=== PATIENT | female | born 1970 | race Caucasian/White ===

== ENCOUNTER 2018-11-05 15:33 | Outpatient (CLI) | payer OTHER, SELFPAY ==
[2018-11-05 16:47] LABS: Abs Immature Grans 0.02 k/cumm (0.0-0.09); Absolute Basophil Count 0.02 k/cumm (0.0-0.2); Absolute Eosinophil Count 0.14 k/cumm (0.0-0.7); Absolute Lymphocyte Count 2.59 k/cumm (1.2-3.4); Absolute Monocyte Count 0.77 k/cumm (0.11-0.7); Absolute Neutrophil Count 6.58 k/cumm (1.2-6.7); Basophils % 0.2; Eosinophils % 1.4; HCT 37.5 % (36.0-46.0); HGB 12.4 g/dL (12.0-15.5); Immature Grans % 0.2; Lymphocytes % 25.6; Mean Corp. HGB Concentration 33.1 g/dL (32.0-36.0); Mean Corpuscular Hemoglobin 30.8 pg (27.0-33.0); Mean Corpuscular Volume 93.1 fL (80-95); Mean Platelet Volume 9.2 fL (8.0-11.0); Monocytes % 7.6; Platelet Count 330 x1000/uL (130-400); RBC 4.03 m/cumm (4.00-5.20); RBC Distribution Width 13.1 % (11.7-14.6); White Blood Cell Count 10.12 k/cumm (4.4-10.8)
[2018-11-05 16:54] LABS: Anion Gap 9.1 mmol/L (3-11); BUN 14 mg/dL (7-18); CO2 26.9 mmol/L (21.0-32.0); CREATININE 0.84 mg/dL (0.55-1.02); Calcium 8.8 mg/dL (8.5-10.1); Chloride 103 mmol/L (98-107); Glucose 83 mg/dL (70-100); Sodium 139 mmol/L (136-145)
== END 2018-11-05 15:53 ==
PROVIDERS: PCP Family Medicine; Visit Provider Family Medicine
DX: K04.7 Periapical abscess without sinus (principal); J20.9 Acute bronchitis, unspecified; R53.83 Other fatigue; E87.5 Hyperkalemia
CPT/HCPCS: 36415; 80048; 85025

== ENCOUNTER 2018-12-18 07:09 | Outpatient (CLI) | payer OTHER, SELFPAY ==
[2018-12-18 08:06] LABS: Hemoglobin A1C 5.6 % (4.5-6.2)
[2018-12-18 08:38] LABS: FREE T4 0.83 ng/dL (0.76-1.46); Magnesium 1.9 mg/dL (1.8-2.4); TSH 2.42 uIU/mL (0.358-3.74)
[2018-12-18 09:12] LABS: Cholesterol 181 mg/dL (50-200); HDL Cholesterol 44 mg/dL (40-60); LDL CHOLESTEROL 120 mg/dL (<100); Triglyceride 80 mg/dL (30-150)
== END 2018-12-18 07:29 ==
PROVIDERS: PCP Family Medicine; Visit Provider Nurse Practitioner Family
DX: E78.5 Hyperlipidemia, unspecified (principal); R00.2 Palpitations
CPT/HCPCS: 36415; 80061; 83721; 83036; 83735; 84439; 84443

== ENCOUNTER 2018-12-23 00:30 | Outpatient (CLI) | payer OTHER, SELFPAY ==
--- NOTE | 2018-12-23 15:09 | DI.MAMMO_ITS ---
SYMPTOMS/DIAGNOSIS: SCREENING, Z12.31 MAMMOGRAM: Mammograms were interpreted according to the usual protocol including computer analysis with CAD system, tomosynthesis and C view imaging. Comparison with prior examinations. Breast density C. No suspicious masses or microcalcifications are seen. There is no definite evidence of malignancy. IMPRESSION: Negative mammogram. Routine screening is recommended. Category I. MQSA ASSESSMENT OF FINDINGS: Negative. Category 1. Patient will receive a letter notifying them of these results. Bi-RADS category C. The breasts are heterogeneously dense, which may obscure small masses.
== END 2018-12-23 00:50 ==
PROVIDERS: PCP Family Medicine; Visit Provider Nurse Practitioner Family
DX: Z12.31 Encounter for screening mammogram for malignant neoplasm of breast (principal)
CPT/HCPCS: 77063; 77067

== ENCOUNTER 2018-12-23 02:23 | Outpatient (CLI) | payer OTHER, SELFPAY ==
--- NOTE | 2018-12-31 10:09 | HOLTER_ITS ---
48-HOUR STUDY Baseline rhythm sinus. Occasional single PAC. No atrial fibrillation or SVT. Rare single PVC. No VT. No bradycardia. SYMPTOMS: Flutter noted six times during sinus rhythm 91-105 bpm. Noted once during ectopic atrial rhythm 71 b pm. Thumping noted twice during sinus rhythm 83, 94 bpm, +/- single PAC. Average heart rate 79 bpm, range 59-140 bpm.
== END 2018-12-23 02:43 ==
PROVIDERS: PCP Family Medicine; Visit Provider Nurse Practitioner Family
DX: R00.2 Palpitations (principal); I49.1 Atrial premature depolarization; I49.3 Ventricular premature depolarization
CPT/HCPCS: 93225

== ENCOUNTER 2018-12-30 12:58 | Outpatient (CLI) | payer OTHER, SELFPAY | END 2018-12-30 13:18 | PROVIDERS: PCP Family Medicine; Visit Provider Nurse Practitioner Family | DX: R00.2 Palpitations (principal); I49.1 Atrial premature depolarization; I49.3 Ventricular premature depolarization | CPT/HCPCS: 93226 ==

== ENCOUNTER 2019-12-19 03:31 | Outpatient (CLI) | payer OTHER, SELFPAY ==
--- NOTE | 2019-12-19 07:30 | DI.RAD_ITS ---
EXAM: XR FOOT LT COMPLETE CLINICAL HISTORY: chronic left foot pain, hx of foot fracture,g89.29. TECHNIQUE: 2D digital imaging was performed. COMPARISON: No exams were available for comparison FINDINGS: BONES: No acute fracture is present. No bony destructive lesion is seen. No old fracture deformity is identified. There is a small accessory navicular. A small heel spur is seen. JOINTS: No dislocation present. SOFT TISSUE: Normal. IMPRESSION: Unremarkable radiographs of the left foot. DATA REPOSITORY: RADIATION DOSE DELIVERED:
== END 2019-12-19 03:51 ==
PROVIDERS: PCP Family Medicine; Visit Provider Nurse Practitioner Family
DX: M79.672 Pain in left foot (principal); G89.29 Other chronic pain; M77.32 Calcaneal spur, left foot
CPT/HCPCS: 73630

== ENCOUNTER 2019-12-23 01:07 | Outpatient (CLI) | payer OTHER, SELFPAY | END 2019-12-23 01:27 | PROVIDERS: PCP Family Medicine; Visit Provider Family Medicine | DX: R00.2 Palpitations (principal) | CPT/HCPCS: 0296T ==

== ENCOUNTER 2019-12-28 16:20 | Emergency (ER) | payer OTHER, SELFPAY ==
[2019-12-28] VITALS (12 sets, daily range): BP systolic 109–133; BP diastolic 58–86; PULSE 76–98; RESP 16–20; TEMP 36.6–36.7; O2SAT 93–98
--- NOTE | 2019-12-28 16:35 | ED.GENADUL_ITS ---
Discharge Plan Disposition Patient Disposition: HOME Condition: Stable Discharge Details Chief Complaint: Allergic Clinical Impression: Bee sting Primary Care Provider: Nevin Hernandez ED Provider: Joshua Ghosh Home Meds and New Rx's Prescriptions: New prednisone 20 mg tablet 60 mg PO DAILY 5 Days Qty: 15 RF: 0 No Action acyclovir 400 mg tablet 400 mg PO BID PRNRF: 0 albuterol sulfate [Ventolin HFA] 90 mcg/actuation HFA aerosol inhaler 1 - 2 puff IH Q4H PRN (Reason: shortness of breath or wheezing) Qty: 8.5 RF: 0 Mirena 1 EACH intrauterine device 1 ea Intrauterine ONCE Qty: 1 RF: 0 Discharge Instructions Instructions: Insect Bite or Sting (ED) Additional Instructions: A take-home EpiPen has been given, use as directed as we discussed. [id number] Zantac and Benadryl as directed. Cool compresses as tolerated. I am providing you a prescription of prednisone, burst, over the next 5 days, take as directed. Please watch for new or worsening symptoms and return to the ER for any concerns. I would like you to reach out to your primary care provider tomorrow to make them aware of your ER visit and for prompt outpatient reevaluation Medical Decision Making 49-year-old female who presents approximately 45 minutes after being stung by a bee. She already took 50 mg p.o. Benadryl and 40 mg p.o. prednisone. She has moderate swelling at the site of the sting however has no signs of systemic reaction, angioedema, anaphylaxis. The location of the sting on the upper lip is obviously concerning however lower lip, mouth, tongue otherwise unremarkable. I do believe it is reasonable given the location to establish IV access, give IV fluids, Zantac, 0.3 subcu epi, and additional 20 p.o. prednisone. Patient is agreeable to this plan. She does understand that she will need to be observed in the ER for a minimum of 4 hours after the epi is given for the potential of rebound. Patient was evaluated and observed multiple times throughout her visit. Each subsequent eval of the swelling did decrease. Now there is no real swelling in the zygomatic region and only mild swelling of the upper lip. There is no obvious stinger present, the erythema has resolved. She is speaking in full sentences, O2 sats are in the high 90s on room air, there is no wheezing. There is no evidence of hives elsewhere on her body. She is able to drink without difficulty. Upon final disposition, patient had been observed for over 4-1/2 hours. At discharge she had minimal upper lip swelling but her face was nearly back to baseline. We discussed that she could be observed in the ER for a longer period of time. We discussed additional treatment of epinephrine however with her history of palpitations and currently wearing a Holter monitor, she would like to avoid additional medications if at all possible. She feels as though she can safely be discharged does not believe further observation is indicated. I do not believe that this was a true anaphylactic reaction, nor true angioedema. I believe that she had a bee sting reaction that was localized to the location of the sting and this appeared more impressive as that was located on her lip. I will provide her with an EpiPen to go home with and I will provide a prescription of a burst dose prednisone over the next 5 days. She will take fjbk-aac-bsnqcpe Benadryl and Zantac. She was encouraged to return to the ER for new or worsening symptoms, otherwise follow-up with her primary care provider tomorrow. Medical Records Medical records reviewed: Yes I reviewed the patient's medical records. HPI General Mode of arrival: ambulatory . Date/Time Provider Initiated Documentation: 12/28/19 16:22 . Limitations to Documentation: no limitations . Information obtained by: patient . HPI Narrative: This is a 49-year-old female who is otherwise healthy presenting for evaluation of a bee sting that occurred roughly 45 minutes ago on her upper lip. She reports that she has had moderate to severe localized allergic reactions to bee stings in the past but never any systemic reactions and never required any epinephrine or intubation. She immediately took 40 mg of prednisone and 50 mg of Benadryl. She reports localized lip swelling which she reports feels like it is extending into her face but denies difficulty swallowing, sensation like her throat is closing, tongue swelling or lower lip swelling. She denies rash anywhere on her body, wheezing, difficulty breathing. She reports that if the bee sting was not l ocated on her face she would have likely not come to the ER but given the location and after talking to her friend who is a nurse decided to come to the ER for further evaluation. Related Data Home Medications Medication Instructions Recorded Confirmed levonorgestrel [Mirena] 1 ea INTRAUTERINE ONCE #1 implant 11/10/13 12/17/19 albuterol sulfate 90 mcg/actuation 1 - 2 puff IH Q4H PRN #8.5 gm 10/28/18 12/17/19 aerosol inhaler acyclovir 400 mg tablet 400 mg PO BID PRN tab-cap 12/11/18 12/17/19 prednisone 60 mg PO DAILY 5 Days #15 tab 12/28/19 Previous Rx's Medication Instructions Recorded albuterol sulfate 90 mcg/actuation 1 - 2 puff IH Q4H PRN #8.5 gm 10/28/18 aerosol inhaler prednisone 60 mg PO DAILY 5 Days #15 tab 12/28/19 Allergies Allergy/AdvReac Type Severity Reaction Status Date / Time venom-honey bee Allergy Intermediate Local Verified 11/05/18 14:43 Swelling General Stated Complaint: Allergic OLGA LIDIA: 3 Review of Systems Constitutional Constitutional: Denies headache(s) Eyes Eyes: Denies itchy eyes ENT Ears, Nose, Mouth, and Throat: Denies headache(s), Reports lip swelling, Denies throat swelling and Denies tongue swelling Cardiovascular Cardiovascular: Denies chest pain and Denies dyspnea Respiratory Respiratory: Denies cough, Denies dyspnea and Denies wheezing Gastrointestinal Gastrointestinal: Denies abdominal pain, Denies nausea and Denies vomiting Musculoskeletal Musculoskeletal: Denies numbness and Denies tingling Integumentary/Breasts Skin/Breast: Reports rash Neurologic Neurologic: Denies headache(s), Denies numbness and Denies tingling Allergic/Immunologic Allergic/Immunologic: Denies urticaria, Denies itchy eyes, Reports lip swelling, Denies throat swelling, Denies tongue swelling and Denies wheezing [facility] Medical History Anxiety and depression (Resolved) stress with step daughter. has declined Rx with Zoloft in the past. Asthma (Resolved) BPPV (benign paroxysmal positional vertigo) (Inactive) Genital herpes (Inactive) GERD (gastroesophageal reflux disease) (Resolved) Hyperlipidemia (Chronic) IUD surveillance (Inactive) Mirena IUD inserted 05/22/17 Family History Mother TB (tuberculosis) A CHILD Essential hypertension Non-Hodgkin lymphoma Stroke Prediabetes Father Essential hypertension Sister No problems noted. Sister No problems noted. Sister No problems noted. Brother No problems noted. Daughter No problems noted. Daughter No problems noted. Daughter No problems noted. Son No problems noted. Maternal Grandfather Glaucoma Parkinson disease Maternal Grandmother Skin cancer Non-Hodgkin lymphoma Heart disease Paternal Grandfather , of NE in his 50s/60s Heart disease Myocardial infarction Paternal Grandmother Colon cancer In her early 80s Macular degeneration Heart disease Social History Smoking/Tobacco Use Status: Former Tobacco Use Quit Date: 08/27/98 Alcohol Intake: current Alcohol Intake frequency: holidays/special occasions only Drug use: Never Substance use type: does not use Do you feel safe at home: Yes Do you feel safe in your relationship?: Yes Female Reproductive History Menstrual control method: progestin IUCD (Mirena IUD 05/22/17) History History 4 Para 4 Hx # Term Pregnancies Multiple births Hx # Pregnancies Ectopic pregnancies AB induced Hx Number of Living Children 4 AB spontaneous Exam Const General: cooperative, healthy appearing, comfortable and no acute distress Orientation: alert, awake and oriented x3 HENMT Head: normal to inspection, normocephalic and atraumatic General nose exam: external nose normal Face and sinus: no tenderness and other (Mild swelling bilateral face, zygomatic region) Mouth: tongue normal, oropharynx normal, moist mucous membranes, no drooling, l ip abnormal (Upper lip, moderate swelling) and no muffled voice Throat: posterior oropharynx normal Eyes Conjunctivae: conjunctivae normal Neck Neck: normal visual inspection, full ROM, no lymphadenopathy, trachea midline, supple and nontender Resp Effort & Inspection: normal respiratory effort and able to speak in complete sentences Auscultation: clear to auscultation bilaterally Cardio Rate: regular rate Rhythm: regular rhythm Skin General skin exam: erythema (Mild, above upper lip, no obvious stinger intact) Neuro General: patient alert, patient awake, patient oriented x3, moves all extremities and no focal motor deficits Cranial Nerves: CN's II-XI intact bilaterally Cognition: normal cognition Speech: speech normal Sensory Exam: no sensory deficits noted Extrem General: normal to inspection and full ROM Psych Appearance: grossly normal Mental Status: mental status grossly normal Course Vital Signs Vital signs: Vital Signs Temperature 36.6 C 12/28/19 16:25 Pulse 98 H 12/28/19 16:25 Respiratory Rate 16 12/28/19 16:25 Blood Pressure 133/86 12/28/19 16:25 Pulse Oximetry 98 12/28/19 16:25 Temperature 36.6 C 12/28/19 16:25 Temperature Source Tympanic 12/28/19 16:25 Pulse 98 H 12/28/19 16:25 Respiratory Rate 16 12/28/19 16:25 Respiratory Effort Non-Labored 12/28/19 16:27 Blood Pressure 133/86 12/28/19 16:25 Blood Pressure Position Sitting 12/28/19 16:25 Pulse Oximetry 98 12/28/19 16:25 Oxygen Delivery Method Room Air 12/28/19 16:25 Oxygen Flow Rate 0 12/28/19 16:25 Pain Level 6 12/28/19 16:25
[2019-12-28] MEDS: Normal Saline 1,000 ML 1000 ML IV (16:47)
[2019-12-28] MEDS: EPINEPHrine 0.3 MG KIT IM ×2 (16:47→20:38)
[2019-12-28] MEDS: predniSONE 20 MG TAB PO (16:47)
--- NOTE | 2020-01-12 08:45 | ZIOP_ITS ---
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 ?Patient was in normal sinus rhythm for the majority of the recording. ?There were 7 runs of supraventricular tachycardia with the longest lasting 20 seconds. ?There were occasional isolated premature atrial contractions. ?There were rare ventricular ectopic beats and no evidence of ventricular tachycardia. ?There were no pauses greater than 3 seconds no episodes of atrial fibrillation and no episodes of high degree heart block. ?Patient triggered events were associated with sinus rhythm sinus tachycardia, premature atrial contractions and supraventricular tachycardia.
== END 2019-12-28 19:20 | disposition home or self-care (01) ==
PROVIDERS: Emergency Provider Physician Assistant; PCP Family Medicine
DX: T63.441A Toxic effect of venom of bees, accidental (unintentional), initial encounter (principal); R60.0 Localized edema; Z91.030 Bee allergy status
CPT/HCPCS: 36415; 96361; 96365; 96372; 99284; J0171; J7512

== ENCOUNTER 2020-01-22 03:34 | Outpatient (CLI) | payer OTHER, SELFPAY ==
[2020-01-22 12:44] LABS: HCT 36.1 % (36.0-46.0); HGB 11.8 g/dL (12.0-15.5); Mean Corp. HGB Concentration 32.7 g/dL (32.0-36.0); Mean Corpuscular Hemoglobin 30.6 pg (27.0-33.0); Mean Corpuscular Volume 93.8 fL (80-95); Mean Platelet Volume 9.1 fL (8.0-11.0); Platelet Count 351 x1000/uL (130-400); RBC 3.85 m/cumm (4.00-5.20); RBC Distribution Width 13.2 % (11.7-14.6); White Blood Cell Count 8.28 k/cumm (4.4-10.8)
[2020-01-22 13:57] LABS: ALT 30 U/L (14-59); AST 16 U/L (15-37); Albumin 3.7 g/dL (3.4-5.0); Alkaline Phosphatase 65 U/L (46-116); Anion Gap 4.5 mmol/L (3-11); BUN 13 mg/dL (7-18); Bilirubin, Total 0.4 mg/dL (0.2-1.0); CO2 28.5 mmol/L (21.0-32.0); CREATININE 0.85 mg/dL (0.55-1.02); Calcium 8.5 mg/dL (8.5-10.1); Chloride 106 mmol/L (98-107); Ferritin 117 ng/mL (8-252); Glucose 81 mg/dL (74-106); Potassium 3.9 mmol/L (3.5-5.1); Sodium 139 mmol/L (136-145); TSH 1.73 uIU/mL (0.36-3.74); Total Protein 6.7 g/dL (6.4-8.2)
[2020-01-22 14:15] LABS: FREE T4 0.78 ng/dL (0.76-1.46)
== END 2020-01-22 03:54 ==
PROVIDERS: PCP Nurse Practitioner Family; Visit Provider Nurse Practitioner Family
DX: R00.2 Palpitations (principal); Z86.2 Personal history of diseases of the blood and blood-forming organs and certain disorders involving the immune mechanism
CPT/HCPCS: 36415; 80053; 85027; 82728; 83735; 84439; 84443

== ENCOUNTER 2020-06-01 07:30 | Outpatient (CLI) | payer OTHER, SELFPAY ==
[2020-06-03 12:15] LABS: Patient Race White; SARS-CoV-2 RNA Undetected (Undetected); SARS-CoV-2 Specimen Source Nasopharynx
== END 2020-06-01 07:50 ==
PROVIDERS: PCP Nurse Practitioner Family; Visit Provider Nurse Practitioner Family
DX: R05 Cough (principal)
CPT/HCPCS: U0003

== ENCOUNTER 2020-07-23 02:33 | Outpatient (CLI) | payer OTHER, SELFPAY ==
--- NOTE | 2020-07-23 06:45 | DI.MAMMO_ITS ---
EXAM: MAMMO SCREENING CLINICAL HISTORY: screening, Z12.31 TECHNIQUE: Mammograms were interpreted according to the usual protocol including computer analysis w [facility] CAD system, tomosynthesis and C-view imaging. COMPARISON: FINDINGS: The breasts are heterogeneously dense. No dominant mass or clumped microcalcification is identified in either breast. The current examination is compared with prior examinations including November 2018, there is question of increase in prominence of a focal area of vaguely nodular asymmetric density pro jected in the upper outer quadrant of the left breast on CC and MLO views. Additional mammographic v iews of this area are requested to include CC and MLO spot compression views of the left breast, as w ell as a breast ultrasound on the left. No other significant change seen. IMPRESSION: Additional mammographic views of the left breast and left breast ultrasound are requested as describe d above. BI-RADS Category 0 - Assessment Incomplete: Need additional imaging evaluation Breast Density - Category C - Heterogeneously dense
== END 2020-07-23 02:53 ==
PROVIDERS: PCP Family Medicine; Visit Provider Nurse Practitioner Family
DX: Z12.31 Encounter for screening mammogram for malignant neoplasm of breast (principal); R92.8 Other abnormal and inconclusive findings on diagnostic imaging of breast
CPT/HCPCS: 77063; 77067

== ENCOUNTER 2020-07-27 00:57 | Outpatient (CLI) | payer OTHER, SELFPAY ==
--- NOTE | 2020-07-27 | DI.US_ITS ---
EXAM: MG MAMMO SCREEN CALL BACK UNI CLINICAL HISTORY: F/U MAMMO, ? INCREASE IN NODULAR ASYMMETRIC DENSITY UOQ TECHNIQUE: Mammograms were interpreted according to the usual protocol including computer analysis w [employer] CAD system, tomosynthesis and C-view imaging. COMPARISON: FINDINGS: Additional mammographic views of the left breast and left breast ultrasound are interpreted in conjun ction. These examinations were obtained to evaluate a questionable areas asymmetric density/nodulari ty of upper outer quadrant of left breast seen on recent mammogram. The findings are less prominent on the CC spot compression views of this area, breast ultrasound [facility] shows a 9 millimeter in diameter simple cyst and no solid mass lesion. IMPRESSION: No specific evidence of malignancy at this time. Follow-up unilateral left breast mammogram recommen ded in 6 months. BI-RADS Category 3 - 6 month - Probably Benign Finding: Recommend follow-up mammography in 6 months Breast Density - Category C - Heterogeneously dense
== END 2020-07-27 01:17 ==
PROVIDERS: PCP Family Medicine; Visit Provider Nurse Practitioner Family
DX: Z12.31 Encounter for screening mammogram for malignant neoplasm of breast (principal); R92.8 Other abnormal and inconclusive findings on diagnostic imaging of breast; N60.02 Solitary cyst of left breast
CPT/HCPCS: 76642; 77063; 77067

== ENCOUNTER 2020-11-16 10:23 | Outpatient (CLI) | payer OTHER, SELFPAY ==
[2020-11-17 14:02] LABS: COVID-19 RT-PCR UVMMC Result Negative (Negative)
== END 2020-11-16 10:24 | disposition home or self-care (01) ==
PROVIDERS: PCP Family Medicine; Visit Provider Family Medicine
DX: Z20.828 Contact with and (suspected) exposure to other viral communicable diseases (principal)
CPT/HCPCS: U0003

== ENCOUNTER 2020-12-22 03:32 | Outpatient (CLI) | payer OTHER, SELFPAY ==
[2020-12-22 12:25] LABS: Abs Immature Grans 0.02 10^3/uL (0.0-0.06); Absolute Basophil Count 0.03 10^3/uL (0.0-0.2); Absolute Eosinophil Count 0.11 10^3/uL (0.0-0.7); Absolute Lymphocyte Count 1.97 10^3/uL (1.2-3.4); Absolute Monocyte Count 0.61 10^3/uL (0.1-0.8); Absolute Neutrophil Count 5.36 10^3/uL (1.2-6.7); Basophils % 0.4; Eosinophils % 1.4; HCT 39.3 % (36.0-46.0); HGB 12.7 g/dL (11.2-15.7); Immature Grans % 0.2; Lymphocytes % 24.3; MCH 30.8 pg (27.0-33.0); MCHC 32.3 % (32.0-36.0); MCV 95.4 fL (80-95); MPV 9.4 fL (8.0-11.0); Monocytes % 7.5; Neutrophils % 66.2; Nucleated RBC 0 %; Platelet Count 310 10^3/uL (130-400); RBC 4.12 10^6/uL (3.93-5.22); RDW 13.1 % (11.7-14.6); RDW-SD 45.6 fL
[2020-12-22 12:44] LABS: Anion Gap 7.3 mmol/L (3-11); BUN 15 mg/dL (7-18); CO2 27.7 mmol/L (21.0-32.0); CREATININE 0.9 mg/dL (0.55-1.02); Calcium 8.7 mg/dL (8.5-10.1); Calculated LDL 116 mg/dL (<100); Chloride 106 mmol/L (98-107); Cholesterol 174 mg/dL (<200); Glucose 96 mg/dL (74-106); HDL Cholesterol 37 mg/dL (40-60); Potassium 4.4 mmol/L (3.5-5.1); Sodium 141 mmol/L (136-145); Triglyceride 105 mg/dL (<150)
== END 2020-12-22 03:33 | disposition home or self-care (01) ==
PROVIDERS: PCP Nurse Practitioner Family; Visit Provider Nurse Practitioner Family
DX: E78.5 Hyperlipidemia, unspecified (principal); R71.8 Other abnormality of red blood cells
CPT/HCPCS: 36415; 80048; 80061; 85025

== ENCOUNTER 2021-01-25 02:07 | Outpatient (CLI) | payer OTHER, SELFPAY ==
--- NOTE | 2021-01-25 09:30 | DI.MAMMO_ITS ---
Exam(s) MAMMO DIAGNOSTIC UNI EXAM: MAMMO DIAGNOSTIC UNI CLINICAL HISTORY: ABNORMAL MAMMO, 6 MO F/U,R92.8,Z09 TECHNIQUE: Mammograms were interpreted according to the usual protocol including computer analysis w [employer] CAD system, tomosynthesis and C-view imaging. COMPARISON: FINDINGS: Left breast mammogram was performed to re-evaluate area of asymmetric density noted on prior mammogra phies of June 2020. No change in appearance on today's examination. No new mass or clumped micr ocalcification identified in the left breast. IMPRESSION: No specific evidence of malignancy at this time. I would suggest that routine screening examinations resume with a bilateral mammogram in 6 months. BI-RADS Category 3 - 6 month - Probably Benign Finding: Recommend follow-up mammography in 6 months Breast Density - Category C - Heterogeneously dense
== END 2021-01-25 02:27 ==
PROVIDERS: PCP Nurse Practitioner Family; Visit Provider Nurse Practitioner Family
DX: Z12.31 Encounter for screening mammogram for malignant neoplasm of breast (principal); R92.8 Other abnormal and inconclusive findings on diagnostic imaging of breast; N64.59 Other signs and symptoms in breast
CPT/HCPCS: 77061; 77065; G0279

== ENCOUNTER 2021-06-14 10:19 | Outpatient (REF) | payer OTHER, SELFPAY ==
[2021-06-16 15:31] LABS: COVID-19 RT-PCR UVMMC Result Negative (Negative)
== END 2021-06-14 10:20 | disposition home or self-care (01) ==
LOC: LBN 10:19
PROVIDERS: Family Medicine; PCP Nurse Practitioner Family; Visit Provider Nurse Practitioner Family
DX: Z20.822 Contact with and (suspected) exposure to COVID-19 (principal); R05.9 Cough, unspecified
CPT/HCPCS: U0003

== ENCOUNTER 2021-06-27 12:29 | Outpatient (REF) | payer OTHER, SELFPAY ==
[2021-06-29 15:02] LABS: COVID-19 RT-PCR UVMMC Result Positive (Negative)
== END 2021-06-27 12:30 | disposition home or self-care (01) ==
LOC: LBN 12:29
PROVIDERS: PCP Nurse Practitioner Family; Visit Provider Family Medicine
DX: Z20.822 Contact with and (suspected) exposure to COVID-19 (principal)
CPT/HCPCS: U0003

== ENCOUNTER 2021-09-06 01:21 | Outpatient (CLI) | payer OTHER, SELFPAY ==
--- NOTE | 2021-09-06 07:30 | DI.MAMMO_ITS ---
Exam(s) MAMMO DIAGNOSTIC BI EXAM: MAMMO DIAGNOSTIC BI CLINICAL HISTORY: F/U ABNL MAMMO, SHORT TERM F/U,R92.8,Z09 TECHNIQUE: Mammograms were interpreted according to the usual protocol including computer analysis w [employer] CAD system, tomosynthesis and C-view imaging. COMPARISON: FINDINGS: The breasts are heterogeneously dense. No dominant mass or clumped microcalcification is identified in either breast. The current examination is compared with previous examinations including July 2020 and there has been no gross interval change in appearance in comparison with the prior studies. IMPRESSION: No specific evidence of malignancy at this time. Routine screening examinations are suggested at yea rly intervals in this age group according to the ACS ACR guidelines. BI-RADS Category 1 - Negative Breast Density - Category C - Heterogeneously dense
== END 2021-09-06 01:41 ==
PROVIDERS: PCP Nurse Practitioner Family; Visit Provider Nurse Practitioner Family
DX: R92.8 Other abnormal and inconclusive findings on diagnostic imaging of breast (principal)
CPT/HCPCS: 77062; 77066; G0279

== ENCOUNTER 2021-09-15 12:32 | Outpatient (REF) | payer OTHER, SELFPAY ==
[2021-09-17 15:39] LABS: COVID-19 RT-PCR UVMMC Result Negative (Negative)
== END 2021-09-15 12:33 | disposition home or self-care (01) ==
LOC: LBN 12:32
PROVIDERS: PCP Nurse Practitioner Family; Visit Provider Nurse Practitioner Family
DX: Z20.822 Contact with and (suspected) exposure to COVID-19 (principal)
CPT/HCPCS: U0003

== ENCOUNTER 2022-01-13 02:11 | Outpatient (CLI) | payer OTHER, SELFPAY ==
[2022-01-13 08:30] LABS: HCT 36.5 % (36.0-46.0); HGB 11.9 g/dL (11.2-15.7); MCH 30.1 pg (27.0-33.0); MCHC 32.6 % (32.0-36.0); MCV 92 fL (80-95); MPV 9.2 fL (8.0-11.0); Platelet Count 276 10^3/uL (130-400); RBC 3.96 10^6/uL (3.93-5.22); RDW 12.9 % (11.7-14.6); RDW-SD 43.5 fL
[2022-01-13 09:28] LABS: Anion Gap 10.5 mmol/L (3-11); BUN 17 mg/dL (7-18); CO2 25.5 mmol/L (21.0-32.0); CREATININE 0.8 mg/dL (0.55-1.02); Calcium 8.4 mg/dL (8.5-10.1); Calculated LDL 79 mg/dL (<100); Chloride 107 mmol/L (98-107); Cholesterol 165 mg/dL (<200); Glucose 98 mg/dL (74-106); HDL Cholesterol 75 mg/dL (40-60); Magnesium 1.6 mg/dL (1.8-2.4); Potassium 4.2 mmol/L (3.5-5.1); Sodium 143 mmol/L (136-145); Triglyceride 58 mg/dL (<150)
== END 2022-01-13 02:12 | disposition home or self-care (01) ==
LOC: LBO 02:12
PROVIDERS: PCP Nurse Practitioner Family; Visit Provider Nurse Practitioner Family
DX: Z00.00 Encounter for general adult medical examination without abnormal findings (principal); I47.1 Supraventricular tachycardia
CPT/HCPCS: 36415; 80048; 80061; 85027; 83735

== ENCOUNTER 2022-01-13 08:34 | Outpatient (CLI) | payer OTHER, SELFPAY ==
--- NOTE | 2022-01-13 08:30 | RT.EKG_ITS ---
APPROVED REPORT Exam: Resting ECG Reason for Exam: PSVT Patient Location: O HR:77 bpm ECG Measurements Heart Rate 77 AXIS NV 164 P 33 QRSd 85 QRS 55 QT 385 T -1 QTc 436 Conclusion Sinus rhythm...normal P axis, V-rate 50- 99 Normal Electrocardiogram
== END 2022-01-13 08:35 | disposition home or self-care (01) ==
LOC: DI.CARD 08:34
PROVIDERS: PCP Nurse Practitioner Family; Visit Provider Internal Medicine Cardiovascular Disease
DX: I47.1 Supraventricular tachycardia (principal)
CPT/HCPCS: 93010

== ENCOUNTER 2022-01-26 16:51 | Outpatient (REF) | payer OTHER, SELFPAY ==
[2022-01-26 20:36] LABS: Bilirubin Negative (Negative); Blood Small (Negative); Clarity Sl Cloudy (Clear); Ketones Negative (Negative); Leukocyte Esterase Small (Negative); Specific Gravity 1.015 (1.005-1.025)
[2022-01-26 20:55] LABS: Glucose Color Interference mg/dL (Negative); Nitrite Color Interference (Negative)
[2022-01-26 20:57] LABS: Bacteria Moderate HPF (Negative); C & S Indicated? Yes; Crystals Negative HPF (Negative); Epithelial Cells Few HPF (Negative); Mucus Negative (Negative); Other Cells Few Transitional (Negative); WBC >50 HPF (0-5)
== END 2022-01-26 16:52 | disposition home or self-care (01) ==
LOC: LBN 16:51
PROVIDERS: PCP Nurse Practitioner Family; Visit Provider Nurse Practitioner Family
DX: R39.89 Other symptoms and signs involving the genitourinary system (principal)
CPT/HCPCS: 87077; 81003; 81015; 87086; 87186

== ENCOUNTER 2022-02-06 04:39 | Outpatient (CLI) | payer OTHER, SELFPAY ==
--- NOTE | 2022-03-14 13:03 | W.CARDEVENT ---
Date of service: 03/14/22 Time of Service: 13:04 Cardiac Event Recorder Referring Provider:: Brock Marie Indications:: SVT Cardiac Event Note: This is a 14-day cardiac event monitor Predominant rhythm was sinus with an average heart rate of 84. Minimum was 56, maximum 156 There were rare ventricular ectopic beats There were occasional atrial premature beats. A total of 5 self-limited atrial runs occurred. The longest of these was 5 beats in duration. Patient symptoms were reported. These corresponded to sinus rhythm, sinus tachycardia and an isolated atrial premature beat
== END 2022-02-06 04:40 | disposition home or self-care (01) ==
LOC: RT 04:39
PROVIDERS: PCP Nurse Practitioner Family; Visit Provider Internal Medicine Cardiovascular Disease
DX: I47.1 Supraventricular tachycardia (principal); I49.1 Atrial premature depolarization; R00.0 Tachycardia, unspecified
CPT/HCPCS: 93246

== ENCOUNTER → 2022-02-24 00:23 | Outpatient (CLI) | payer OTHER, SELFPAY ==
--- OUTSIDE RECORDS SUMMARY | 2022-02-24 00:26 | XMS_ITS | Encounter Summary ---
:1970 Author Organization [facility] [place] [address] Care Team Providers Name Role Phone Nevin Hernandez MD Primary Care Provider Reason for Referral Consultation (Routine) - Authorized Specialty Diagnoses / Procedures Referred By Contact Refer red To Contact Dermatology Diagnoses Skin lesion Janelle Zayas APRN [facility] [address] [place] [address] [place], [place] [address] [address] [place] [address] Fax: Referral ID Status Reason Start Expiration Visits Visits Date Date Requested Authorized [id number] Authorized Consult, 01/06/2022 01/06/2023 6 6 Test & Treat PCP Updated and/or Approved Encounter Details Date Type Department Care Team Description 01/06/2022 Transcribe Orders eDH Incoming Referra ls Janelle Zayas APRN Skin lesion [phone] [place] [place] [address] (Wo rk) Social History Tobacco Use Types Packs/Day Years Used Date Never Assessed Sex Assigned at Date Recorded Not on file documented as of this encounter Plan of Treatment Scheduled Referrals Name Type Priority Associated Order Schedule Diagnoses Referral to Outpatient Referral Routine Skin lesion Ordered: Dermatology 01/06/2022 documented as of this encounter Visit Diagnoses Diagnosis Skin lesion Unspecified disorder of skin and subcuta neous tissue documented in this encounter Care Teams Check Weigher Relationship Specialty Start Date End Date Nevin Hernandez MD PCP - General 07/19/[address] [place] [address] documented as of this encounter
--- OUTSIDE RECORDS SUMMARY | 2022-02-24 00:26 | XMS_ITS | Encounter Summary ---
:1970 Author Organization [facility] [place] [address] Care Team Providers Name Role Phone Nevin Hernandez MD Primary Care Provider Encounter Details Date Type Department Care Team Description 08/25/2020 Hospital [place] [address] Social History Tobacco Use Types Packs/Day Years Used Date Never Assessed Sex Assigned at Date Recorded Not on file documented as of this encounter Medications at Time of Discharge Medication Sig Dispensed Refills Start Date End Date fluticasone (FLOVENT HFA) 2 Puff(s), Inh, 0 02/06 110 mcg/Actuation inhaler Twice daily [facility] Free Text Med - 2 Puff(s), Inh, Four 0 2004 Albuterol times daily PRN benzonatate (TESSALON 100mg, PO, Three 0 10/20/19 05 PERLES) 100 mg capsule times daily,PRN documented as of this encounter Plan of Treatment Not on filedocumented as of this encounter Procedures Procedure Name Priority Date/Time Associated Diagnosis Comme nts COVID-19 PCR Routine 08/25/2020 3:52 PM Results f or this EST procedure are i n the results section . documented in this encounter Results COVID-19 PCR (08/25/2020 3:52 PM EST) [facility] Method Time Signature SARS-CoV-2 Not Detected Not Detected GABY RNA [facility] Comment: This result should be interpreted in com bination with the clinical observations, patient history and epidem iological information in making a final diagnosis. For testing of asymptomatic i ndividuals, assay performance characteristics and clinical utility hav e not been evaluated. Testing for SARS-CoV-2 (Severe acute respiratory syn drome coronavirus 2, formerly known as 2019 novel coronavirus or 2019-nCoV) to aid in the diagnosis of COVID-19 is performed using the [employer] S-CoV-2 Assay as authorized by the FDA Emergency Use Authorization (EUA). This EUA assay is intended for In-vitro Diagnostic (IVD) use with respiratory sp ecimens such as nasopharyngeal swabs collected from individuals during the ac akosua phase of infection. This assay is performed based on the instructions for use provided by [employer] and additional guidance provided by CDC and FDA. Testing is performed in the [facility] within the Department of Pathology and Laboratory Medicine at [facility], certified under the Clinical Laboratory Improvement Amendments of 1988 (CLIA), 42 U.S.C. 263a, to perform high complexi ty tests. Assay performance has been verified according to clinical laborator y regulatory requirements for use with specimens collected from individuals lou pected of COVID-19. Test results are provided above. A result of ? Not Detected? indicates that the viral RNA target is not present above the limit of detect ion, but does not preclude SARS-CoV-2 infection. False negative results may oc cur if a specimen is improperly collected, transported or handled; if am plification inhibitors are present; or if inadequate numbers of viral particles are present in the specimen. When a diagnostic test is negative, the possibi lity of a false negative result should be considered in the context of a patien t? s recent exposures and the presence of clinical signs and symptoms consisten t with COVID-19. A result of ? Detected? indicates that RNA from SARS-CoV-2 was d etected and the patient is infected. As required or requested by public health a uthorities, positive specimens may be sent for additional testing. Positive an d negative predictive values for this test are highly dependent on disease pre valence. A result of ? Invalid? indicates that neither the viral RNA tar gets nor the internal control target was detected. An invalid result suggests the presence of inhibitors. Recollection and re-testing is recommend ed in the case of an invalid result. CDC COVID-19 criteria for testing on hum an specimens and clinical management guidance information are available at [facility] CDC Coronavirus Disease 2019 (COVID-19) webpage under ? Information for Healthcare Professionals? (https://www.cdc.gov/coronavirus/2019-nc ov/hcp/index.html) Additional information about this and ot her EUA tests can be found in provider and patient fact sheets at the following FDA website: https://www.fda.gov/medical-devices/xempgpxkobk-vhnacvn-3293-yrzgj-98-vggprsixz- cvg-rcyicwabxuddqv-krplkvv-devices/rlgfj-qbdgheyncra-pncl SARS-Cov-2 RNA Source Nasal [facility] Specimen Anatomical Collection Method Collection Time Receive d Time (Source) Location / / Volume Laterality Specimen from Other / Unknown 08/25/2020 3:52 PM 08/26 1:22 nose (specimen) EST AM EST Resulting Agency Comment Spec In Lab Bubba Olivas MD MICROBIOLOGY - GENERAL ORDER YENNI Performing Organization Address City/State/[place] [address] documented in this encounter Visit Diagnoses Not on filedocumented in this encounter Care Teams Explosives Detonator Relationship Specialty Start Date End Date Nevin Hernandez MD PCP - General 07/19/[address] [place] [address] documented as of this encounter
--- OUTSIDE RECORDS SUMMARY | 2022-02-24 00:26 | XMS_ITS | Encounter Summary ---
:1970 Author Organization [place] [address] Care Team Providers Name Role Phone Nvein Hernandez MD Primary Care Provider Reason for Visit Consultation (Routine) - Closed Specialty Diagnoses / Procedures Referred By Contact Refer red To Contact Allergy Diagnoses bee venom Janelle Zayas, PROFILE SHAPER OPERATOR [facility] [place] [facility]m [facility] [place] [address] [place] [address] Referral ID Status Reason Start Date Expiration Date Visits V isits Requested Authorized [id number] Closed Consult, Test 12/31/2019 12/30/2020 1 1 & Treat PCP Updated and/or Approved Encounter Details Date Type Department Care Team Description 01/05/2020 TH Visit All[place] [facility] [place] Urias, Angioedema, initial encounte r; (TeleHealth) [facility] Noris Orta MD Toxic effect of venom, accidental or uni ntentional, initial encounter [place], [place] [address] ALLERGY DEPT [phone] [place], [place] [address] Social History Tobacco Use Types Packs/Day Years Used Date Former Smoker Smokeless Tobacco: Never Used Sex Assigned at Date Recorded Not on file documented as of this encounter Progress Notes Noris Lala MD - 01/05/2020 4:00 PM EDT Images from the original note were not included. [facility] *Telehealth* [facility] Section of Allergy and Clinical Immunology Primary Care Provider: Nevin Hernandez MD (Inactive) Patient Age: 49 y.o. Patient : 1970 Reason for Evaluation: venom allergy Historian: self Patient Location: home in [place] The patient consented with me that they agree to receive health care services provided by [facility] through telemedicine. We discussed the opportunities and limitations of delivering health care services through telemedicine. 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 She reports the swelling started within minutes. She immediately took Benedryl and used ice, baking soda paste. The angioedema continued to spread, worse right side> left side, but both sides of her face was affected. She felt like she couldn't open her mouth. Her thought she was breathing funny. She went to the [facility] ED, where she received epinephrine, prednisone. At discharge, she had minor residual lip swelling. She has previously had bad swelling with an insect sting, such as on her ankle. She has had a history of chronic bronchitis in 1995 when she was , but she no longer has hadthese issues. She recalls another episode after a bad cold in 2001. [facility] of [facility]. She now has an epinephrine autoinjector and understands how to use it. Allergies: Allergies no known allergies Family History: Her son has allergies. Social History: Social History Tobacco Use ??? Smoking status: Not on file Substance Use Topics ??? Alcohol use: Not on file ??? Drug use: Not on file Review of Systems: All other systems reviewed and negative. 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 I agree she should continue to avoid the beehives until further evaluation. She should also continue to keep her epinephrine autoinjector on hand. Risks and benefits of skin testing were discussed in detail with the patient. The patient requested skin testing to the allergens as planned All questions were answered, and patient/parents expressed understanding of the plan. Thank you for the opportunity to participate in the care of your patient. Ongoing follow-up with thepatient's primary care physician is recommended and encouraged. If I can provide any further assistance, please do not hesitate to contact me. Next visit (studies planned): venom skin testing Noris Urias MD Bi Manager, Allergy [place] [address] [email or web address] documented in this encounter Plan of Treatment Not on filedocumented as of this encounter Visit Diagnoses Diagnosis Angioedema, initial encounter Toxic effect of venom, accidental or uni ntentional, initial encounter documented in this encounter Care Teams Ad Terminal Makeup Operator Relationship Specialty Start Date End Date Nevin Hernandez MD PCP - General 07/19/10 [address] [place] [address] documented as of this encounter
--- OUTSIDE RECORDS SUMMARY | 2022-02-24 00:26 | XMS_ITS | Clinical Summary ---
:1970 Author Organization [facility] Address [address] [place] [address] Care Team Providers Name Role Phone Md LADAN Ritchie Primary Care Provider Unavailable Social History Tobacco Use Types Packs/Day Years Used Date Never Assessed Sex Assigned at Date Recorded Not on file Plan of Treatment Health Maintenance Due Date Last Done Comments Hepatitis C Screen 1970 COVID-19 Vaccine (1) 1984 Care Teams Prop Sawyer Relationship Specialty Start Date End Date Md Ritchie MD PCP - General 07/25/10
--- OUTSIDE RECORDS SUMMARY | 2022-02-24 00:26 | XMS_ITS | Encounter Summary ---
:1970 Author Organization [facility] [place] [address] Care Team Providers Name Role Phone Nevin Hernandez MD Primary Care Provider Encounter Details Date Type Department Care Team Description 02/08/2022 Telephone Dermatology at [facility] Anaid Landeros MD [address] [place] [address] [facility] [phone] [place], [place] [address] (Wo rk) Social History Tobacco Use Types Packs/Day Years Used Date Former Smoker Smokeless Tobacco: Never Used Sex Assigned at Date Recorded Not on file documented as of this encounter Miscellaneous Notes Telephone Encounter - Anaid Landeros MD - 02/08/2022 4:28 PM EDT Called pt to discuss results. Sent to . Left message letting her know that both spots came back asbenign dermatofibromas. Left callback number in case she has any questions or concerns. 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
--- OUTSIDE RECORDS SUMMARY | 2022-02-24 00:26 | XMS_ITS | Clinical Summary ---
:1970 Author Organization [facility] [place] [address] Care Team Providers Name Role Phone Nevin Hernandez MD Primary Care Provider Allergies No known active allergies Medications Medication Sig Dispensed Refills Start Date End Date Status CIS Free Text Med - 2 Puff(s), Inh, 0 08/02/2005 Active Albuterol Four times daily PRN benzonatate (TESSALON 100mg, PO, Three 0 10/20/2004 Active PERLES) 100 mg capsule times daily,PRN fluticasone (FLOVENT 2 Puff(s), Inh, 0 02/06/2006 Active HFA) 110 mcg/Actuation Twice daily inhaler Active Problems No known active problems Encounters Date Type Specialty Care Team Description 02/08/2022 Telephone Dermatology Anaid Landeros MD 02/03/2022 Office Visit Dermatology Anaid Landeros MD Neoplasm of uncertain behavior 01/06/2022 Transcribe Orders Primary Care Janelle Zayas, Skin l esion BOARD CERTIFIED FAMILY PHYSICIAN from Last 3 Months Social History Tobacco Use Types Packs/Day Years Used Date Former Smoker Smokeless Tobacco: Never Used Sex Assigned at Date Recorded Not on file Plan of Treatment Health Maintenance Due Date Last Done Comments Covid-19 Vaccine (#1) 1977 HIV screen 1990 Hepatitis C Screening 1990 Tdap adult 1991 Tetanus vaccine 1991 HPV test 2002 PAP Smear 2002 Breast Cancer Share Decision Needed 2012 Colonoscopy 2017 Influenza (Flu) vaccine (1 of 1 - Influenza standard 04/27/2021 series) Procedures Procedure Name Priority Date/Time Associated Diagnosis Comme nts SPECIMEN TO Routine 02/03/2022 1:25 PM Neoplasm of Results f or this PATHOLOGY EDT uncertain behavior procedure are in the results section. SPECIMEN TO Routine 02/03/2022 1:25 PM Neoplasm of Results f or this PATHOLOGY EDT uncertain behavior procedure are in the results section. SURGICAL PATHOLOGY Routine 02/03/2022 1:22 PM Res ults for this REPORT EDT procedure are i n the results section. from Last 3 Months Results Specimen to Pathology (02/03/2022 1:25 PM EDT)Only the most recent of2 results within the time period is included. Specimen Anatomical Collection Method Collection Time Receive d Time (Source) Location / / Volume Laterality AP Specimen 02/03/2022 1:25 PM 2 1:25 EDT PM EDT Narrative [facility] - 02/03/2022 1:25 PM EDT Specimen requisition ordered. ??Separate Pathology report to follow Claudette Ordaz MD PATHOLOGY/CYTOLOGY ORDERABLE S Performing Organization Address City/State/[place] [address] Surgical Pathology Report (02/03/2022 1:22 PM EDT) Component Value Ref Test Analysis Performed At [facility] gist Range Method Time Signature Surgical [id number] ? Location: [facility] Report The signing pathologist has (i) examined the relevant preparation(s) for the [facility] specimen(s) and (ii) rendered or confirmed the diagnosis(es) . HOSPITAL LABORATORY . 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 of Pathology, [place], [place] DISCUSSION A and B - Both biopsies show similar cellular dermal spindle cell proliferation with overlying epidermal acantho sis, irritated. Lesional cells are negative for Sox10, CD34 or p40 expression by ? ? immunohistochemistry studies. Focal features of collagen wrapping ??are seen at the edge of the lesion. ?? The histologic changes are consistent with dermatofibroma. ADDITIONAL STUDIES Immunohistochemistry Studies: Formalin-fixed, paraffin-emb edded tissue sections of A1 and B1 are studied for ? Sox10, CD34 and p40 ??using the po lymer technique with appropriate positive and negative controls. ?? These IHC stud ies provide the pathologist with adjunctive diagnostic information. Antibody specificity has been verified by test ing antibodies on a series of in-house tissues with known immunohistoche mical performance characteristics. The clinic al interpretation of any antibody positive staining or its absence is evaluated wi thin the context of clinical presentation, morphology, histopathological criteria and other diagnostic tests. SPECIMEN(S) SUBMITTED A - A. Right upper outer arm, skin shave biopsy (1) B - B. upper right lateral leg, skin shave biopsy (1) CLINICAL INFORMATION A - 4 mm indurated pink papu le with central scale and erosion. DDX: DF versus adnexal tumor B - 7 mm flat pink papule with central e rosion. DDX: DF versus less likely BCC SPECIMEN PROCESSING A - Labeled/Fixative: Right upper outer arm, formalin. Quantity/Size: ??Single, 0.6 x 0.5 cm. Tissue Description: Non-oriented ovoid angelo mcclure shave of a c entral 0.3 cm peripherally white, centrally red-brown granular papule. Sections/Processing: Inked, bisected and entirely submitted in 1 cassette labeled A1. B - Labeled/Fixative: Upper right lateral leg, formalin. Quantity/Size: ??Single, 0.8 x 0.4 cm. . SPECIMEN PROCESSING Tissue Description: Ovoid, n on-oriented mcclure shave of a 0.4 x 0.2 cm rubbery, pink papule. Sections/Processing: Inked, trisected and entirely submitted in 1 cassette labele d B1. ??shb Specimen (Source) Anatomical Collection Method Collection Time Re ceived Time Location / / Volume Laterality 02/03/2022 1:22 PM EDT Anaid Landeros MD PATHOLOGY/CYTOLOGY ORDERABLE S Performing Organization Address City/State/[place] [address] from Last 3 Months Insurance Payer Benefit Plan / Subscriber ID Effective Dates Phone Addre ss Type Group [employer] CIGNA OPEN [id number] 2017-Present [phone] [id number] ACCESS PLUS LEENA PASTOR [id number] CIGNA CIGNA OPEN [id number] 2020-Present [phone] [address] [id number] ACCESS PLUS LEENA PASTOR [id number] Laureen Arnold (Home) [place], [place] [phone] (Work) Care Teams Cmm Technician Relationship Specialty Start Date End Date Nevin Hernandez MD PCP - General 07/19/10 [address] [place], [place] [address]
--- OUTSIDE RECORDS SUMMARY | 2022-02-24 00:26 | XMS_ITS | Encounter Summary ---
:1970 Author Organization [facility] Address [address] [place] [address] Care Team Providers Name Role Phone Md LADAN Ritchie Primary Care Provider Unavailable Encounter Details Date Type Department Care Team Description 09/16/2021 Lab Requisition [facility] Outr Resulting Lab, Pathology & Laboratory Provider [facility] [address] [place] [address] Social History Tobacco Use Types Packs/Day Years Used Date Never Assessed Sex Assigned at Date Recorded Not on file documented as of this encounter Plan of Treatment Not on filedocumented as of this encounter Procedures Procedure Name Priority Date/Time Associated Diagnosis Comme nts COVID-19 TEST [facility] Today 09/15/2021 11:55 LAB PCR EST COVID-19 TESTING Routine 09/15/2021 11:55 Results for this EST procedure are i n the results section. documented in this encounter Results COVID-19 TEST [facility] LAB PCR (09/15/2021 11:55 EST) Specimen Swab Performing Organization Address City/State/ZIP Code Phon e Number [facility] [address] [place] [address] SERVICES COVID-19 TESTING (09/15/2021 11:55 EST) COVID-19 rt-PCR Negative Negative [facility] Result Comment: [facility] This test has not been FDA c leared or approved. This test has been authorized by FDA under an EUA for use by authorized laboratories. This test has been authorized only for detection of nucleic acid fro SERVICES m 2019-nCoV, not for any oth er viruses or pathogens. This test is only authorized for the duration of the declaration that circumstances exist justifying the authorization of emergency use of in vitro d iagnostic tests for detectio n and/or diagnosis of 2019-nCoV under section 564(b)(1) of Act, 21 U.S.C ?? 360bbb-3(b) (1), unless the authorization is terminated or revoked sooner. Negative results do not prec lude 2019-nCoV infection and should not be used as the sole basis for treatment or other patient management decisions. Negative results must be combined with clinical observa tions, patient history, and epidemiological informatio n. This test was developed and its performance characteristics determined by [facility]. It has not been cleared or approved by the US Food and Drug Administration. FDA does not require this test to go through premarket FDA review. This t est is used for clinical purposes. It should not be regarded as investigational or for research. This laboratory is certified under the Clinical Laboratory Improvement Amendm ents (CLIA) as qualified to perform high complexity clinical laboratory testing. Laboratory Developed Test (LDT) Performed on the [employer] 7 Flex RT-PCR System. This test was developed and its performance characteristics determined by [facility]. It has not been cleared or approved by the US Food and Drug Administration. FDA does not require this test to go through premarket FDA review. This t est is used for clinical purposes. It should not be regarded as investigational or for research. This laboratory is certified under the Clinical Laboratory Improvement Amendm ents (CLIA) as qualified to perform high complexity clinical laboratory testing. Laboratory Developed Test (LDT) Performed on the [employer] 7 Pro RT-PCR System. Performing Lab [facility] Specimen Swab Performing Organization Address City/State/ZIP Code Phon e Number [facility] [address] [place] [address] SERVICES documented in this encounter Visit Diagnoses Not on filedocumented in this encounter Care Teams Quantitative Equity Head Relationship Specialty Start Date End Date Md Ritchie MD PCP - General 07/25/10 documented as of this encounter
--- OUTSIDE RECORDS SUMMARY | 2022-02-24 00:26 | XMS_ITS | Encounter Summary ---
:1970 Author Organization [facility] [place] [address] Care Team Providers Name Role Phone Nevin Hernandez MD Primary Care Provider Reason for Visit Reason Comments Skin Lesion Consultation (Routine) - Authorized Specialty Diagnoses / Procedures Referred By Contact Refer red To Contact Dermatology Diagnoses Skin lesion Janelle Zayas, LABORER/KEY MAN [facility] Dermatology [address] [place] [address] [place], [place] [address] [address] [place] [address] Fax: Referral ID Status Reason Start Expiration Visits Visits Date Date Requested Authorized [id number] Authorized Consult, 01/06/2022 01/06/2023 6 6 Test & Treat PCP Updated and/or Approved Encounter Details Date Type Department Care Team Description 02/03/2022 Office Visit Dermatology at [facility] Anaid Landeros Ne [address] behavior [address] [place] [address] [facility] [place], [place] [address] Social History Tobacco Use Types Packs/Day Years Used Date Former Smoker Smokeless Tobacco: Never Used Sex Assigned at Date Recorded Not on file documented as of this encounter Progress Notes Anaid Landeros MD - 02/03/2022 1:00 PM EDT Images from the original note were not included. DEPARTMENT OF DERMATOLOGY Medical Dermatology Clinic Note Provider: [facility] Patient's preferred name Laureen Preferred contact method for results []Phone []myD-H []Letter Detailed phone message OK? Y Are there any other people with whom we may discuss your care? 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 Patient is referred to the clinic at the request of Janelle Zayas for evaluation of a non- healing lesion on the upper right arm, onset ~ three months ago that is incredibly sensitive and will bleed immediately if scratched. Scabs over anddoes not help. -right lower lateral gross ~years that has same characteristics. -she does not recall any trauma to either site Review of Systems: General: Feeling well. Skin: No other skin concerns. Medications: Reviewed in eD-H Allergies: Reviewed in eD-H Skin Examination: Focused skin examination of the right posterior arm and right lateral gross was normal with the exception of the findings below. Assessment/Plan #. Neoplasm of Uncertain Behavior - 4 mm indurated pink papule with central scale and erosion (Figure 1) DDx: DF vs Adnexal Tumor - After review of risks and benefits, joint decision made to pursue shave biopsy today. Procedure: Skin biopsy by shave technique Location: A. Right upper outer arm Discussed indications for procedure and expectations including risks and benefits. Verbal consent obtained. Skin prep with alcohol. Local anesthesia with 1% lidocaine, 1/100,000 epinephrine. A sample of the lesion was removed by shave technique to the level of the dermis and submitted to Pathology. Hem ostasis obtained. There were no complications; the patient tolerated the procedure well. The wound was dressed. Post-procedure expectations, wound care and activity restrictions were reviewed. Follow-up based on pathology results. #. Neoplasm of Uncertain Behavior - 7 mm flat pink papule with central erosion (Figure 2) DDx: DF vs less likely BCC - After review of risks and benefits, joint decision made to pursue shave biopsy today. Procedure: Skin biopsy by shave technique Location: upper right lateral leg Discussed indications for procedure and expectations including risks and benefits. Verbal consent obtained. Skin prep with alcohol. Local anesthesia with 1% lidocaine, 1/100,000 epinephrine. A sample of the lesion was removed by shave technique to the level of the dermis and submitted to Pathology. Hem ostasis obtained. There were no complications; the patient tolerated the procedure well. The wound was dressed. Post-procedure expectations, wound care and activity restrictions were reviewed. Follow-up based on pathology results. Figure 1 Photo(s) taken and charted with patient's verbal consent. Other: ??? N/A RTC: Pending pathology. Scribe attestation: Marii Shannon [facility] has performed the documentation for this encounter in the presence of and acting as a scribe for Anaid Landeros MD. I performed the above scribed service and agree with the accuracy of the documentation in this encounter. Reviewed and signed by: [facility] Dermatology [facility] Patient seen and evaluated with staff secretarial stenographer: Matthew Orourke MD Department of Dermatology [facility] Matthew Orourke MD - 02/03/2022 1:00 PM EDT I directly supervised Dr. Landeros during this office visit. Dr. Landeros presented the history and physical exam to me. I, then, saw and examined this patient with Dr. Landeros. We reviewed the history and pertinentdetails and I confirmed the physical findings. I agree with the details of the history and physical exam as documented in Dr. Landeros's note. MATTHEW OROURKE MD Staff Physician documented in this encounter Plan of Treatment [...] results section. documented in this encounter Results Specimen to Pathology (02/03/2022 1:25 PM EDT) Specimen Anatomical Collection Method Collection Time Receive d Time (Source) Location / / Volume Laterality AP Specimen 02/03/2022 1:25 PM 2 1:25 EDT PM EDT Narrative [facility] OR - 02/03/2022 1:25 PM EDT Specimen requisition ordered. ??Separate Pathology report to follow Matthew Orourke MD PATHOLOGY/CYTOLOGY ORDERABLE S Performing Organization Address City/[facility]/[place] [address] Specimen to Pathology (02/03/2022 1:25 PM EDT) Specimen Anatomical Collection Method Collection Time Receive d Time (Source) Location / / Volume Laterality AP Specimen 02/03/2022 1:25 PM 2 1:25 EDT PM EDT Narrative [facility] OR - 02/03/2022 1:25 PM EDT Specimen requisition ordered. ??Separate Pathology report to follow Matthew Orourke MD PATHOLOGY/CYTOLOGY ORDERABLE S Performing Organization Address City/[facility] [place] [address] Surgical Pathology Report (02/03/2022 1:22 PM EDT) Component Value Ref Test Analysis Performed At [facility] Method Time Signature Surgical [id number] ? Location: [facility] Pathology [place] Report The signing pathologist has (i) examined [...] Discussion) Electronically signed by: ?Sammy PICKERING, PhD, [facility] Verified: ??02/08/2022 16:20 ??Dermatopathologist Performed at: ??-[facility] [place], [place], [place] DISCUSSION A and B - Both [...] Organization Address City/State/[place] [address] documented in this encounter Visit Diagnoses Diagnosis Neoplasm of uncertain behavior Neoplasm of uncertain behavior, site uns pecified documented in this encounter Care Teams Sighter Relationship Specialty Start Date End Date Nevin Hernandez MD PCP - General 07/19/10 [address] [place] [address] documented as of this encounter
--- OUTSIDE RECORDS SUMMARY | 2022-02-24 00:27 | XMS_ITS | Encounter Summary ---
:1970 Author Organization [facility] Address [address] [place] [address] Care Team Providers Name Role Phone Md LADAN Ritchie Primary Care Provider Unavailable Encounter Details Date Type Department Care Team Description 06/27/2021 Lab Requisition [facility] Outr Resulting Lab, Pathology & Laboratory Provider [facility] [address] [place] [address] Social History Tobacco Use Types Packs/Day Years Used Date Never Assessed Sex Assigned at Date Recorded Not on file documented as of this encounter Plan of Treatment Not on filedocumented as of this encounter Procedures Procedure Name Priority Date/Time Associated Diagnosis Comme nts COVID-19 TEST [facility] Today 06/27/2021 11:17 LAB PCR EDT COVID-19 TESTING Routine 06/27/2021 11:17 Results for this EDT procedure are i n the results section. documented in this encounter Results COVID-19 TEST [facility] LAB PCR (06/27/2021 11:17 EDT) Specimen Swab - Entire nasopharynx (body structur e) Performing Organization Address City/State/ZIP Code Phon e Number [facility] [address] [place] [address] SERVICES (ABNORMAL) COVID-19 TESTING (06/27/2021 11:17 EDT) COVID-19 rt-PCR Positive (AA) Negative [facility] Result Comment: CENTER [facility]ORY [...] the authorization is terminated or revoked sooner. This test was developed and its performance characteristics determined by [facility]. It has not been cleared or approved [...] to perform high complexity clinical laboratory testing. This test is based on the CD C COVID-19 Emergency Use Authorization (EUA) assay, with minor modification as defined by the FDA Performed on the [employer] 7 Pro RT-PCR System. Performing Lab [facility] Lab [facility] SERVICES Specimen Swab Performing Organization Address City/State/ZIP Code Phon e Number [facility] [address] [place] [address] SERVICES documented in this encounter Visit Diagnoses Not on filedocumented in this encounter Additional Health Concerns Infection Onset Date Last Indicated Resolved Time COVID-19 06/27/2021 06/27/2021 07/17/2021 22:15 EST documented as of this encounter Care Teams Information Systems Coordinator Relationship Specialty Start Date End Date Md Ritchie MD PCP - General 07/25/10 documented as of this encounter
--- OUTSIDE RECORDS SUMMARY | 2022-02-24 00:27 | XMS_ITS | Encounter Summary ---
:1970 Author Organization [facility] Address [address] [place] [address] Care Team Providers Name Role Phone Md LADAN Ritchie Primary Care Provider Unavailable Encounter Details Date Type Department Care Team Description 06/15/2021 Lab Requisition [facility] Outr Resulting Lab, Pathology & Laboratory Provider [facility] [address] [place] [address] Social History Tobacco Use Types Packs/Day Years Used Date Never Assessed Sex Assigned at Date Recorded Not on file documented as of this encounter Plan of Treatment Not on filedocumented as of this encounter Procedures Procedure Name Priority Date/Time Associated Diagnosis Comme nts COVID-19 TEST [facility] Today 06/14/2021 10:15 LAB PCR EDT COVID-19 TESTING Routine 06/14/2021 10:15 Results for this EDT procedure are i n the results section. documented in this encounter Results COVID-19 TEST [facility] LAB PCR (06/14/2021 10:15 EDT) Specimen Swab - Entire nasopharynx (body structur e) Performing Organization Address City/State/ZIP Code Phon e Number [facility] [address] [place] [address] SERVICES COVID-19 TESTING (06/14/2021 10:15 EDT) COVID-19 rt-PCR Negative Negative [facility] MEDICAL Result Comment: CENTER LABORATORY This test has not been FDA c leared or approved. This test has been authorized by FDA under an EUA for use by authorized laboratories. This test has been authorized only for detection of nucleic acid fro SERVICES m 2018-nCo, not for any oth er viruses or [...] tions, patient history, and epidemiological informatio n. Testing was performed using the rah SARS-CoV-2 assay ([employer] on the Rah 6800 System Performing Lab Rah [address] [facility] Lab [facility] SERVICES Specimen Swab Performing Organization Address City/State/ZIP Code Phon e Number [facility] [address] [place] [address] SERVICES documented in this encounter Visit Diagnoses Not on filedocumented in this encounter Additional Health Concerns Infection Onset Date Last Indicated Resolved Time COVID-19 06/27/2021 06/27/2021 07/17/2021 22:15 EST documented as of this encounter Care Teams Testing Lead Relationship Specialty Start Date End Date Md Ritchie MD PCP - General 07/25/10 documented as of this encounter
--- OUTSIDE RECORDS SUMMARY | 2022-02-24 00:27 | XMS_ITS | Encounter Summary ---
:1970 Author Organization [facility] Address [address] [place] [address] Care Team Providers Name Role Phone Md LADAN Ritchie Primary Care Provider Unavailable Encounter Details Date Type Department Care Team Description 11/10/2013 Results Only [facility] Marshall Duenas MEDICAL COLLECTIONS REPRESENTATIVE Laboratory Services - [address] [facility] [address] [address] [place] [address] [phone] Social History Tobacco Use Types Packs/Day Years Used Date Never Assessed Sex Assigned at Date Recorded Not on file documented as of this encounter Plan of Treatment Not on filedocumented as of this encounter Procedures Procedure Name Priority Date/Time Associated Diagnosis Comme nts PAP TEST- RESULT Routine 11/10/2013 0:00 EDT Resu lts for this ONLY procedure are i n the results section. documented in this encounter Results PAP TEST- RESULT ONLY (11/10/2013 0:00 EDT) Pathology Report: CYTOPATHOLOGY REPORT [facility] Reports generated via electronic interface contain elma ginal data; however they are lacking the format of the original re port. Caution should be taken when reading/interpreting unfo rmatted reports. Name: ? HUBERT RIVERA ? Accession #: ? [id number] : ? 1970 (Age: 43) ??F ?Collect Date: ? 10/25 Location: ? [facility] ? Receive Date : ? 11/11/2013 Provider: ?WILNER DUENAS MEDICAL COLLECTIONS REPRESENTATIVE Copy to: ?ROMY PEPPER MD ? Specimen/Source: ? Pap Test, Cervix/Endocervix, ThinPrep Imaging System with manual evaluation Last Menstrual Period: ? Hormonal/Contraceptive Status: ? Intrauterine device: Mirena ? SPECIMEN ADEQUACY ? Satisfactory for Evaluation - transformation zone component present - scant squamous epithelial component secondary to exc essive blood GENERAL CATEGORIZATION ? Negative for Intraepithelial Lesion or Malignan cy INTERPRETATION ? Reactive cellular edy nges associated with inflammation present (includes repair). ? Document reviewed and electronically signed by: ? TRAY LÓPEZ MD ? Report Date: ??11/17/2013 17:51 End of Report Specimen Performing Organization Address City/State/ZIP Code Phon e Number [facility] [address] [place] [address] SERVICES [facility] [address] [place] [address] documented in this encounter Visit Diagnoses Not on filedocumented in this encounter Care Teams Dairy Husbandman Relationship Specialty Start Date End Date Md Ritchie MD PCP - General 07/25/10 documented as of this encounter
--- OUTSIDE RECORDS SUMMARY | 2022-02-24 00:27 | XMS_ITS | Encounter Summary ---
:1970 Author Organization [facility] Address [address] [place] [address] Care Team Providers Name Role Phone Md LADAN Ritchie Primary Care Provider Unavailable Encounter Details Date Type Department Care Team Description 11/16/2020 Lab Requisition [facility] Outr Resulting Lab, Pathology & Laboratory Provider [facility] [address] [place] [address] Social History Tobacco Use Types Packs/Day Years Used Date Never Assessed Sex Assigned at Date Recorded Not on file documented as of this encounter Plan of Treatment Not on filedocumented as of this encounter Procedures Procedure Name Priority Date/Time Associated Diagnosis Comme nts COVID-19 TEST [facility] Today 11/16/2020 10:50 LAB PCR EDT COVID-19 TESTING Routine 11/16/2020 10:50 Results for this EDT procedure are i n the results section. documented in this encounter Results COVID-19 TEST [facility] LAB PCR (11/16/2020 10:50 EDT) Specimen Swab - Entire nasopharynx (body structur e) Performing Organization Address City/State/ZIP Code Phon e Number [facility] [address] [place] [address] SERVICES COVID-19 TESTING (11/16/2020 10:50 EDT) COVID-19 rt-PCR Negative Negative [facility] Result Comment: CENTER LABORATORY This test [...] developed and its performance characteristics determined by [facility]. It has not been cleared or approved [...] defined by the FDA Performed on the MaxLinear Pro RT-PCR System. Performing Lab [facility] Lab [facility] SERVICES Specimen Swab Performing Organization Address City/State/ZIP Code Phon e Number [facility] [address] [place] [address] SERVICES documented in this encounter Visit Diagnoses Not on filedocumented in this encounter Additional Health Concerns Infection Onset Date Last Indicated Resolved Time COVID-19 06/27/2021 06/27/2021 07/17/2021 22:15 EST documented as of this encounter Care Teams Straightedge Machine Operator Helper Relationship Specialty Start Date End Date Md Ritchie MD PCP - General 07/25/10 documented as of this encounter
--- OUTSIDE RECORDS SUMMARY | 2022-02-24 00:27 | XMS_ITS | Encounter Summary ---
:1970 Author Organization [facility] Address [address] [place] [address] Care Team Providers Name Role Phone Md LADAN Ritchie Primary Care Provider Unavailable Encounter Details Date Type Department Care Team Description 07/22/2010 Results Only [facility] Marshall Duenas SENSITIZER Laboratory Services - [address] [place] [address] [address] [place] [address] [phone] Social History Tobacco Use Types Packs/Day Years Used Date Never Assessed Sex Assigned at Date Recorded Not on file documented as of this encounter Plan of Treatment Not on filedocumented as of this encounter Procedures Procedure Name Priority Date/Time Associated Diagnosis Comme [facility] CYTOPATHOLOGY Routine 07/22/2010 0:00 EST Results for this procedure are i n the results section . documented in this encounter Results CYTOPATHOLOGY (07/22/2010 0:00 EST) Pathology Report: CYTOPATHOLOGY REPORT ? [facility] ? LAB Reports generated via [employer] interface contain original data; ? however they are lacking the format of the original report. ? Caution should be taken when reading/interpreting unformatted reports. ? Name: ? HUBERT RIVERA ? Accession #: ? [id number] ? : ? 1970 (Age: 40) ??F ?Collect Date: ? 07/22/2010 ? Location: ? [facility] ? Receive Date: ? 07/26/2010 ? Provider: ?WILNER RAYGOZA OOD SENSITIZER ? Copy to: ? Specimen/Source: ? Pap Test, Cervix/Endocervix, ThinPrep Imaging System ? with manual evaluation ? Last Menstrual Period: ? 10/30/10 ? Hormonal/Contraceptive Statu s: ? Intrauterine device: paragar d ? SPECIMEN ADEQUACY ? Satisfactory for Eval uation ? - transformation zone compon ent present ? GENERAL CATEGORIZATION ? Negative for Intraepi thelial Lesion or Malignancy ? Document reviewed and electr onically signed by: ? Brad [place], [place]( CP) ? Report Date: ??12/02/ 2010 15:37 ? End of Report ? Specimen Performing Organization Address City/State/ZIP Code Phon e Number [facility] [address] [place] [address] SERVICES [facility] [address] [place] [address] documented in this encounter Visit Diagnoses Not on filedocumented in this encounter Care Teams Area Intelligence Technician Relationship Specialty Start Date End Date Md Ritchie MD PCP - General 07/25/10 documented as of this encounter
--- OUTSIDE RECORDS SUMMARY | 2022-02-24 00:27 | XMS_ITS | Encounter Summary ---
:1970 Author Organization [facility] Address [address] [place] [address] Care Team Providers Name Role Phone Md LADAN Ritchie Primary Care Provider Unavailable Encounter Details Date Type Department Care Team Description 05/22/2017 Results Only [facility] Willis Pena MD [phone] [facility],[address] [address] (Wo rk) Social History Tobacco Use Types Packs/Day Years Used Date Never Assessed Sex Assigned at Date Recorded Not on file documented as of this encounter Plan of Treatment Not on filedocumented as of this encounter Procedures Procedure Name Priority Date/Time Associated Diagnosis Comme nts PAP TEST- RESULT Routine 05/22/2017 0:00 EDT Resu lts for this ONLY procedure are i n the results section. documented in this encounter Results PAP TEST- RESULT ONLY (05/22/2017 0:00 EDT) Pathology Report: CYTOPATHOLOGY REPORT [facility] Reports generated via electronic interface contain elma ginal data; SERVICES however they are lacking the format of the original re port. Caution should be taken when reading/interpreting unfo rmatted reports. Name: ? DENZEL ADAMES ? Accession #: ? [id number] : ? 1970 (Age: 46) ??F ?Collect Date: ? 05/22/2017 ? Location: ? [facility] ? Receive Date: ? 05/23/20 17 ? Provider: WILLIS PENA MD Copy to: ROMY PEPPER MD ? Final Report SPECIMEN ADEQUACY ? Satisfactory for Evaluation - transformation zone component present - scant squamous epithelial component secondary to exc essive blood - scant squamous epithelial component secondary to exc essive inflammation - obscuring contamination, possibly lubricant GENERAL CATEGORIZATION ? Negative for Intraepithelial Lesion or Malignan cy ?? Hormonal/Contraceptive status: Intrauterine device: mi lorena Other: Additional clinical information: insuffient allen ls Specimen/Source: ??Pap Test, Cervix, ThinPrep Imaging System with manual evaluation Document reviewed and electronically signed by: ? Swapna Ames, CT(ASCP)(IAC) ? Report ??Date: 06/06/2017 10:06 HPV with Pap Test ? Date Ordered: ? 06/06/2017 ? Status: ?? Signed Out ?Date Complete: ? 06/07/2017 ? By: ??S ystem Interface ? Date Reported: ? 06/07/2017 ? Interpretation RESULT: Negative for HPV. No E6 or E7 mRNA is detected from HPV types 16,18,31,3 3,35, 39,45,51,52,56,58,59,66, and 68 by manager custom media freya amplification. Comments Document reviewed and electronically signed by: ? System Interface ? Report date: 06/07/2017 By the signature above, the attending physician certif ies that he/she has personally conducted a gross and/or microscopic examin ation of the described specimens and rendered or confirmed the above diagnosi s. End of Report Specimen Performing Organization Address City/State/ZIP Code Phon e Number [facility] [address] [place], [place] [address] SERVICES documented in this encounter Visit Diagnoses Not on filedocumented in this encounter Care Teams Hogshead Opener Relationship Specialty Start Date End Date Md Ritchie MD PCP - General 07/25/10 documented as of this encounter
--- NOTE | 2022-02-24 07:15 | DI.US_ITS ---
APPROVED REPORT EXAM: Comprehensive 2D, Doppler, and color-flow Echocardiogram Patient Location: Out-Patient Internal Controls Consultant: Keyla Nichole RDCS (AE) Indications: SVT Other Information Study Quality: Good Conclusion Normal left ventricular wall thickness and chamber size. Estimated ejection fraction is 60 to 65%. Wall motion is normal Normal right ventricular size and systolic function Both atria are normal in size There is no structural or hemodynamically significant valvular disease Estimated right ventricular systolic pressure is 28 mmHg Wall motion Left Ventricle The left ventricle is normal size. The left ventricular systolic function is normal. The left ventric ular ejection fraction is within the normal range. There is normal left ventricular wall thickness. T here is normal LV segmental wall motion. There is no ventricular septal defect visualized. LVEF is 60 -65%. Right Ventricle The right ventricle is normal size. The right ventricular systolic function is normal. The RVSP is 28 .5 mmHg. Atria The left atrium size is normal. The right atrium size is normal. The interatrial septum is intact wit h no evidence for an atrial septal defect. Aortic Valve The aortic valve is normal in structure. Aortic valve is trileaflet. There is no aortic valvular sten osis. No aortic regurgitation is present. Mitral Valve The mitral valve is normal in structure. No evidence of mitral valve stenosis. Trace mitral regurgita tion. Tricuspid Valve The tricuspid valve is normal in structure. There is no tricuspid valve stenosis. Trace tricuspid reg urgitation. Pulmonic Valve The pulmonary valve is normal in structure. There is no pulmonic valvular stenosis. Trace pulmonic re gurgitation. Great Vessels The aortic root is normal in size. The ascending aorta is normal in size. Aortic arch is normal in ca liber. The IVC collapses <50% with inspiration. Pericardium There is no pericardial effusion. 2D Dimensions IVSD d PLAX 1.01 cm F: 0.6-1.0 LV Vol A2C d MOD 90.8 mL LVPW d PLAX 1.03 cm F: 0.6 - 1.0 LV Vol A4C d MOD 73.8 mL LVID d PLAX 4.36 cm F: 3.8 - 5.2 LA vol/ BSA A2C s A-L 20.7 mL/m2 LVDs 2.80 cm F: 2.2 - 3.5 LA vol/ BSA A4C s A-L 22.1 mL/m2 Ao Root d 2.71 cm F: 2.7 - 3.3 LA Vol/ BSA Biplane s A-L 22.5 mL/m2 RA Area A4C 13.13 cm2 LA Area A4C s MOD 17.18 cm2 RA Vol/ BSA A4C s A-L 16.0 mL/m2 LA Area A2C s MOD 15.82 cm2 Ao Asc Diam d 3.14 cm F: 2.3 - 3.1 LV EF A4C MOD 63.6 % LV EF Teichholz 64.8 % LV EF A2C MOD 65.7 % LVEF (Maciel's) 64.46 % F: 54 - 74 LV EF Biplane MOD 64.5 % LV Volume 61.56 mL F: 46 - 106 SV 53.20 mL LV Volume Index 30.32 mL/m2 F: 29 - 61 SV Index 26.16 mL/m2 LV Vol Biplane MOD 82.5 mL FS 35.15 % M-Mode TAPSE 2.65 cm (M/F) >1.7 LV Diastology MV E' medial 0.166 (>0.07 m/s) E/A Ratio 1.6 LV E/e MED 5.80 (<14) MV E Vmax 0.97 (0.4-1.3 m/s) MV E' lateral 0.134 (>0.1 m/s) MV A Vmax 0.60 (0.4-1.3 m/s) LV E/e LAT 7.20 (<14) MV E/A Ratio 1.58 MV E/E' medial 5.83 MV E/E' lateral 7.21 Aortic Valve LVOT Area 3.01 cm2 AoV Area Vmax 2.30 cm2 LVOT Vmax 1.00 m/s AoV Area/ BSA (Vmax) 1.13 cm2/m2 LVOT Mean Tod. 0.63 m/s CAMILLA Mean Tod. 2.06 cm2 LVOT Peak Grad 4.0 mmHg CAMILLA Mean Tod. Index 1.01 cm2/m2 LVOT Mean Grad 1.9 mmHg LVOT VTI 0.264 m LVOT Diam s 1.95 cm AoV Vmax 1.30 m/s Velocity Ratio 0.76 AoV Mean Tod. 0.92 m/s AoV Peak Grad 6.8 mmHg LVOT SV 79.52 mL AoV Mean Grad 3.9 mmHg AoV VTI 0.293 m AoV Area VTI 2.72 cm2 AoV Area/ BSA (VTI) 1.34 cm/m2 Mitral Valve MV DT 192 (160-240 msec) MV PHT 56 msec MV Area PHT 3.95 cm2 MV VTI 0.279 m MV Area VTI 2.85 (4.0-6.0 cm2) Pulmonary Valve PV Vmax 0.98 (0.5-1.5 m/s) RVOT Peak Gr. 2.70 mmHg PV Peak Grad 3.8 mmHg RVOT Mean Gr. 1.25 mmHg PV Mean Grad 2.2 mmHg RVOT VTI 0.196 m PV VTI 0.243 m RVOT Vmax 0.82 m/s Tricuspid Valve TR Peak Grad 20.4 mmHg TR Vmax 2.26 m/s RA Pressure 8.00 mmHg RVSP (TR) 28.5 mmHg
== END ==
PROVIDERS: PCP Nurse Practitioner Family; Visit Provider Internal Medicine Cardiovascular Disease
DX: I47.1 Supraventricular tachycardia (principal)
CPT/HCPCS: 93306

== ENCOUNTER 2022-03-19 10:41 | Emergency (ER) | payer OTHER, SELFPAY ==
[2022-03-19 10:52] VITALS: BP 125/76; PULSE 79; RESP 16; TEMP 36.2; O2SAT 97
--- NOTE | 2022-03-19 11:00 | DI.RAD_ITS ---
Exam(s) XR KNEE RT 4V AP,LAT,MANI,PAT EXAM: XR KNEE RT 4V AP,LAT,MANI,PAT CLINICAL HISTORY: Blunt knee trauma. TECHNIQUE: 2D digital imaging was performed of the right knee. Four views obtained. AP, lateral, Me rchant and PA tunnel views were obtained. COMPARISON: No exams were available for comparison FINDINGS: BONES: No acute fracture is present. No bony destructive lesion is seen. JOINTS: The knee is normally aligned. No joint effusion is seen. Mild degenerative changes in the med ial femoral tibial joint. SOFT TISSUE: Normal. IMPRESSION: No acute fracture or dislocation. DATA REPOSITORY: RADIATION DOSE DELIVERED:
--- NOTE | 2022-03-19 11:05 | ED.GENADUL_ITS ---
Discharge Plan Disposition Patient Disposition: HOME Condition: Stable Discharge Details Clinical Impression: Contusion of right knee, initial encounter Primary Care Provider: Lupe Crisostomo ED Provider: Rakesh Rascon Home Meds and New Rx's Prescriptions: No Action epinephrine 0.3 mg/0.3 mL auto-injector 0.3 ml SC ONCE Rx Instructions: as a single dose; may repeat once epinephrine 0.3 mg/0.3 mL auto-injector 0.3 mg IM Q5-15M PRN (Reason: hypersensitivity reaction) Qty: 2 0RF Rx Instructions: do not exceed 3 doses per episode Mirena 1 EACH intrauterine device 1 ea Intrauterine ONCE Qty: 1 albuterol sulfate [Ventolin HFA] 90 mcg/actuation HFA aerosol inhaler 1 - 2 puff IH Q4H PRN (Reason: shortness of breath or wheezing) Qty: 3 4RF acyclovir 400 mg tablet 400 mg PO BID PRN (Reason: rash) Qty: 60 0RF Discharge Instructions Instructions: Contusion in Adults (ED) Additional Instructions: Please continue to use [id number] pain medication as needed. You also may apply ice for 20 minutes on and at least 20 minutes off for the next 48 hours. You may perform weightbearing activities as tolerated but if you are seeing no signs of improvement in the next 1 to 2-week please follow-up with primary care provider for reassessment or feel free to return to the emergency department for any significant worsening of your symptoms Referrals: Lupe Crisostomo, RV REPAIRER [Primary Care Provider] - (As needed for reassessment or if not improving) Medical Decision Making Patient presenting to the emergency department for chief complaint of right knee injury. She states yesterday evening she twisted her left ankle and in the fall she landed with moderate to significant force to the anterior right knee. She does state slight abrasion which she cleaned and dressed appropriately but she is having painful range of motion and tenderness to the anterior knee. Physical exam shows significant tenderness to the patella and the surrounding tissue along with a little bit of pain to the lateral joint. Exam is otherwise unremarkable. We will plan on performing radiological imaging for evaluation of acute patellar fracture as a high suspicion versus significant contusion. Patient stated that she did not need any pain medication at this time pending results. I reviewed both the radiological imaging and radiologist report and show no acute findings. Will place patient in a hinged knee brace and encouraged ice for suspected significant contusion to the right knee. Will encourage patient to follow-up with primary care provider if not improving in the next 1 to 2 weeks for reassessment. After discussion of diagnosis and plan of care patient has no further needs, questions, or concerns and states clear understanding to return to the emergency department for any worsening symptoms. This documentation was generated using [employer] dictation system, please disregard any oddities of phrase or misspellings. Imaging Data Radiologic Study: Attestation: I personally reviewed and interpreted this imaging study as follows: Imaging: X-Ray Radiologist's impression: FINDINGS: Bones/joints: No acute fracture or dislocation. Mild medial compartment osteoarthritis. No significant joint effusion. Soft tissues: No acute abnormality. IMPRESSION: No radiographic evidence of acute osseous injury. HPI General Mode of arrival: ambulatory . Date/Time Provider Initiated Documentation: 03/19/22 10:46 . Limitations to Documentation: no limitations . Information obtained by: patient and RN notes reviewed . History of Present Illness 51 year old F presents to the emergency department with the chief complaint of Right knee injury, described as moderate, with intensity rated at 5. Quality is described as aching and sharp, and is localized to the right and lower extremity. Patient reports no radiation. Patient started experiencing this day(s) (1) and it has been constant. Immobilization improves symptom(s), Movement worsens symptoms . Patient notes no other symptoms.. Patient did receive the following treatments prior to arrival, NSAID Related Data Home Medications Medication Instructions Recorded Confirmed levonorgestrel 20 mcg/24 hours (7 1 ea intrauterine ONCE #1 implant 11/10/13 03/19/22 yrs) 52 mg intrauterine device (Mirena) epinephrine 0.3 mg/0.3 mL 0.3 ml subcut ONCE 01/21/20 03/19/22 injection, auto-injector albuterol sulfate 90 mcg/actuation 1 - 2 puff inhalation Q4H PRN 07/01/21 03/19/22 aerosol inhaler (Ventolin HFA) shortness of breath or wheezing #3 ea acyclovir 400 mg tablet 400 mg PO BID PRN rash #60 tab-caps 08/17/21 03/19/22 epinephrine 0.3 mg/0.3 mL 0.3 mg (0.3 mL) IM Q5-15M PRN 12/23/21 03/19/22 injection, auto-injector hypersensitivity reaction #2 ea Previous Rx's Medication Instructions Recorded albuterol sulfate 90 mcg/actuation 1 - 2 puff inhalation Q4H PRN 07/01/21 aerosol inhaler (Ventolin HFA) shortness of breath or wheezing #3 ea acyclovir 400 mg tablet 400 mg PO BID PRN rash #60 tab-caps 08/17/21 epinephrine 0.3 mg/0.3 mL 0.3 mg (0.3 mL) IM Q5-15M PRN 12/23/21 injection, auto-injector hypersensitivity reaction #2 ea Allergies Allergy/AdvReac Type Severity Reaction Status Date / Time venom-honey bee Allergy Intermediate Local Verified 03/19/22 10:55 Swelling General Stated Complaint: Orthopedic OLGA LIDIA: 4 Review of Systems Narrative: 8 systems reviewed and unremarkable except what is marked below. Cardiovascular Cardiovascular: Denies syncope Musculoskeletal Musculoskeletal: Reports as per HPI, Reports arthralgias, Reports joint swelling and Reports limited range of motion Neurologic Neurologic: Denies syncope PFSH All Active Problems (Updated 03/19/22 @ 11:56 by Rakesh Rascon NP) Contusion of right knee, initial encounter (Acute) Palpitations (Acute) COVID-19 (Acute) 06/2021-breakthrough infection, mild symptoms Nonsustained paroxysmal supraventricular tachycardia (Chronic) Hyperlipidemia (Chronic) Medical History Anxiety and depression Asthma BPPV (benign paroxysmal positional vertigo) GERD (gastroesophageal reflux disease) Surgical History No significant past surgical history Family History Mother TB (tuberculosis) Essential hypertension Non-Hodgkin lymphoma Stroke Prediabetes Father Essential hypertension Sister No problems noted. Sister No problems noted. Sister No problems noted. Brother No problems noted. Daughter No problems noted. Daughter No problems noted. Daughter No problems noted. Son No problems noted. Maternal Grandfather Glaucoma Parkinson disease Maternal Grandmother Skin cancer Non-Hodgkin lymphoma Heart disease Paternal Grandfather , of [place] in his 50s/60s Heart disease Myocardial infarction Paternal Grandmother Colon cancer In her early 80s Macular degeneration Heart disease Social History Smoking/Tobacco Use Status: Former Tobacco Use tobacco type: cigarettes Quit Date: 08/27/98 Second Hand Exposure: Yes Smoking risk assessment performed?: Yes Alcohol Intake: current Alcohol Intake frequency: a few times a month Alcohol type: wine and hard liquor Drug use: Never Substance use type: does not use Caregiver/Support person: No Household members: spouse Housing: house Communication Needs: None Do you need help understanding health information?: Never Pets and animals: Yes Pets and animals: cat(s), dog(s), bird(s) and other Details: Bee hives, pigeons Sexually active: Yes Do you think of yourself as: straight/heterosexual Current gender identity: female What is your relationship status?: How often do you talk on the phone with friends or family?: three or more times per week How often do you get together with friends or relatives?: three or more times per week How often do you attend muslim or lutheran services?: decline to answer Do you belong to any clubs or organized social groups?: no Panel score (0-1 are the most socially isolated patients): 2 What type of physical activity do you participate in: none Carito/Adventism: Religious Seatbelt use: always Helmet use: No 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 Do you feel safe at home: Yes Do you feel safe in your relationship?: Yes Female Reproductive History Menstrual control method: progestin IUCD (Mirena IUD 05/22/17) History History 4 Para 4 Hx # Term Pregnancies Multiple births Hx # Pregnancies Ectopic pregnancies AB induced Hx Number of Living Children 4 AB spontaneous Exam Const General: cooperative, no acute distress and not ill appearing Orientation: alert, awake and oriented x3 Resp Effort & Inspection: normal respiratory effort, able to speak in complete sentences and no respiratory distress Cardio Rate: regular rate Rhythm: regular rhythm Pulses: posterior tibial pulses present and dorsalis pedis present Skin General skin exam: no rashes or lesions noted Neuro General: patient alert, patient awake, patient oriented x3, moves all extremities and no focal motor deficits Sensory Exam: no sensory deficits noted Extrem General: normal exam except as noted Right lower extremity: knee Details: tenderness Location: of the patella and of the lateral joint line, swelling Location: of the patella, abnormal ROM Details: pain with active ROM during; able to extend lower leg actively and abrasion knee anterior Details: single Course Vital Signs Vital signs: Vital Signs Temperature 36.2 C L 03/19/22 10:52 Pulse 79 03/19/22 10:52 Respiratory Rate 16 03/19/22 10:52 Blood Pressure 125/76 03/19/22 10:52 Pulse Oximetry 97 03/19/22 10:52 Temperature 36.2 C L 03/19/22 10:52 Temperature Source Temporal Artery Scan 03/19/22 10:52 Pulse 79 03/19/22 10:52 Respiratory Rate 16 03/19/22 10:52 Respiratory Effort 03/19/22 10:54 Blood Pressure 125/76 03/19/22 10:52 Blood Pressure Position Sitting 03/19/22 10:52 Pulse Oximetry 97 03/19/22 10:52 Oxygen Delivery Method Room Air 03/19/22 10:52 Oxygen Flow Rate 0 03/19/22 10:52 Pain Level 5 03/19/22 10:56
--- NOTE | 2022-03-19 11:49 | DI.VRAD_ITS ---
PROCEDURE INFORMATION: Exam: XR Right Knee Exam date and time: 03/19/2022 11:18 AM Age: 51 years old Clinical indication: Pain; Knee; Right; Additional info: Blunt knee trauma TECHNIQUE: Imaging protocol: Radiologic exam of the Right knee. Views: 4 or more views. COMPARISON: No relevant prior studies available. FINDINGS: Bones/joints: No acute fracture or dislocation. Mild medial compartment osteoarthritis. No significant joint effusion. Soft tissues: No acute abnormality. IMPRESSION: No radiographic evidence of acute osseous injury. Dictated and Authenticated by: Deisy Carmona MD. Ordering:KEIRA Cameron MD
== END 2022-03-19 12:10 | disposition home or self-care (01) ==
PROVIDERS: Emergency Provider Nurse Practitioner Family; PCP Nurse Practitioner Family
DX: S80.01XA Contusion of right knee, initial encounter (principal); X50.1XXA Overexertion from prolonged static or awkward postures, initial encounter; W19.XXXA Unspecified fall, initial encounter; Z87.891 Personal history of nicotine dependence
CPT/HCPCS: 29505; 99283; 73564; 99284

== ENCOUNTER 2022-05-11 07:16 | Day surgery (SDC) | payer OTHER, SELFPAY ==
--- NOTE | 2022-05-11 05:24 | W.PM.DSUDISC ---
Discharge Plan Disposition Patient Disposition: HOME Condition: Good Discharge Details Reason For Visit: screening colonoscopy Attending Provider: Jules York Primary Care Provider: Lupe Crisostomo Home Meds and New Rx's Prescriptions: Continued epinephrine 0.3 mg/0.3 mL auto-injector 0.3 ml SC ONCE Rx Instructions: as a single dose; may repeat once Mirena 1 EACH intrauterine device 1 ea Intrauterine ONCE Qty: 1 Label Comments: in place albuterol sulfate [Ventolin HFA] 90 mcg/actuation HFA aerosol inhaler 1 - 2 puff IH Q4H PRN (Reason: shortness of breath or wheezing) Qty: 3 4RF acyclovir 400 mg tablet 400 mg PO BID PRN (Reason: rash) Qty: 60 0RF Discontinued bisacodyl [Dulcolax (bisacodyl)] 5 mg tablet,delayed release (DR/EC) 5 mg PO ONCE Qty: 4 0RF Rx Instructions: Take according to provider's instructions for colonoscopy prep. polyethylene glycol 3350 17 gram/dose powder 17 g PO ONCE Qty: 238 0RF Rx Instructions: To be taken as directed by prescriber's office for colonoscopy prep. No Action ibuprofen 200 mg Capsule 400 mg PO Q6H PRN Discharge Instructions Instructions: Colonoscopy (DC), Diverticulosis (DC) Additional Instructions: 1. If tolerated, consume a soft, low fiber diet for 1-2 days. 2[address] Do not drive, drink alcohol, operate machinery, make critical decisions, or do activities that require coordination or balance for 24 hours. 3. Because air was put into your colon during the procedure, expelling air from your rectum (passing gas or farting) is normal. 4. You may not have a bowel movement for 1-3 days because of the colonoscopy prep. This is normal. 5. Go directly to the emergency room if you notice any of the following: Develop chills (warm to touch), or if you have a thermometer and your temperature is above 101 Difficulty breathing or difficultly swallowing Persistent vomiting Severe abdominal pain, other than gas cramps Severe chest pain Black, tarry stools Any bleeding ? exceeding one tablespoon 6. Call your physician if the site where your intravenous was started becomes red, swollen, painful, and warm to touch. 7. Your physician has reviewed your pre-procedure medications. Please continue to take those medications as previously ordered. You will be given specific information/education regarding any changes to your medications before leaving. Activity:: Activity as Tolerated Diet:: As Tolerated Discharge Orders Discharge Orders: Discharge Order (Routine); Ordered 05/11/22 Ordered By: Jules York Discharge Data Discharge Comment: follow up colonoscopy 10 years DS: Diagnosis Discharge Diagnosis (1) Diverticulosis: Status: Acute Asessment and Plan: Eat a high fiber diet and maintain good hydration Follow up screening colonoscopy in 10 years
--- NOTE | 2022-05-11 05:26 | W.COLOREPORT ---
Colonoscopy Report Date of procedure: 05/11/22 Pre-op diagnosis general: screening colonoscopy for routine health maintenance Post-op diagnosis procedure note: other (diverticulosis) Procedure: screening colonoscopy Surgeon: Jules York Anesthesia Type: General:No Airway Estimated blood loss (mL): 0 Pathology: none sent Complications: None Disposition: same day Indications: Laureen is a 51-year-old woman here for screening colonoscopy as part of routine health maintenance. Prep: Miralax/Dulcolax Procedure Start Time: 08:54 Procedure End Time: 09:19 Retraction Time: 20 Findings: Mild sigmoid diverticulosis Procedure Description: After the induction of monitored anesthetic care, and with the patient in left lateral decubitus position, I began by performing an external anorectal exam.? Perineum and skin were normal, as was the anal verge.? There was no evidence of external hemorrhoids.? Next, I performed a digital rectal exam.? I did not appreciate any abnormal findings.? Next, I advanced a colonoscope into the rectal vault.? I performed retroflexion.? I did see signs of internal hemorrhoids.? Using insufflation, I then advanced the colonoscope beyond the rectal folds and into the sigmoid colon before advancing towards the cecum.? There was some mild sigmoid diverticulosis. the quality of the prep was excellent.? The scope was noted to be in the cecum by identification of the ileocecal valve and appendiceal orifice.? I then began withdrawing the colonoscope using repeated irrigation as necessary for full evaluation of the colonic mucosa. ?Once the scope was withdrawn to the level of the rectum, great care was taken to examine portions of the rectal folds.? Finally, the scope was withdrawn and the patient was brought to the same-day surgery recovery unit as the anesthetic wore off. ?The findings and instructions were shared with the patient prior to discharge.
--- NOTE | 2022-05-11 06:57 | W.ANESPRE ---
General Info Date of Service Date Performed: 05/11/22 Height: 5 ft 5 in Weight: 95.708 kg Body Mass Index (BMI): 35.1 Surgical Procedure: Operation Date: 05/11/22 08:35 Proposed Procedure Side Surgeon p Colonoscopy Jules York MD Meds Allergies and Home Medications Allergies Allergy/AdvReac Type Severity Reaction Status Date / Time venom-honey bee Allergy Intermediate Local Verified 05/11/22 07:41 Swelling Home Medication Medication Instructions Recorded levonorgestrel 20 mcg/24 hours (7 1 ea intrauterine ONCE #1 implant 11/10/13 yrs) 52 mg intrauterine device (Mirena) epinephrine 0.3 mg/0.3 mL 0.3 ml subcut ONCE 01/21/20 injection, auto-injector albuterol sulfate 90 mcg/actuation 1 - 2 puff inhalation Q4H PRN 07/01/21 aerosol inhaler (Ventolin HFA) shortness of breath or wheezing #3 ea acyclovir 400 mg tablet 400 mg PO BID PRN rash #60 tab-caps 08/17/21 ibuprofen 200 mg capsule 400 mg PO Q6H PRN 05/11/22 Current Visit Medications: Current Medications Generic Name Dose Route Start Last Admin Trade Name Freq PRN Reason Stop Dose Admin Ringer's Solution 1,000 mls @ 80 mls/hr 05/11/22 06:00 IV 06/09/22 23:59 INFUSION MATTEO IV Miscellaneous Supplies 1 each 05/11/22 06:00 Iv Access IV 06/09/22 23:59 DIRECTED MATTEO Sodium Chloride 0 ml 05/11/22 06:00 Normal Saline Flush 10 Ml Syr IV 06/09/22 23:59 PRN PRN Sodium Chloride 0 ml 05/11/22 06:00 Normal Saline 10 Ml Vial IJ 06/09/22 23:59 DIRECTED PRN Sterile Water 0 ml 05/11/22 06:00 Water,Injection,Sterile 10 Ml Vial IJ 06/09/22 23:59 DIRECTED PRN PFSH Active Problems Active Problems: Problem Status Onset Code Screening for colon cancer Z12.11 Palpitations R00.2 COVID-19 U07.1 Nonsustained paroxysmal supraventricular tachycardia I47.1 Hyperlipidemia E78.5 Medical History Medical History Anxiety and depression Asthma BPPV (benign paroxysmal positional vertigo) GERD (gastroesophageal reflux disease) Surgical History Surgical History (Updated 05/11/22 @ 07:44 by Terese Myers) Hx of tooth extraction pt. states as a young child, no recollection of event except feeling like she was in a closet No significant past surgical history Tobacco Smoking/Tobacco Use Status: Former Tobacco Use Second hand exposure: Yes Alcohol Alcohol Intake: current Alcohol intake frequency: a few times a month Alcohol type: wine and hard liquor Substance Use Substance use: Never Substance use type: does not use Prental History History 4 Para 4 Hx # Term Pregnancies Multiple births Hx # Pregnancies Ectopic pregnancies AB induced Hx Number of Living Children 4 AB spontaneous Vital Signs and Lab Results Lab Results Blood Type / Crossmatch: No Data to Display Complete Blood Count: No Data to Display Complete Metabolic Panel: No Data to Display Liver Function Panel: No Data to Display Coagulation Panel: No Data to Display Cardiac Panel: No Data to Display Arterial Blood Gas: No Data to Display Venous Blood Gas: No Data to Display Pancreas Panel: No Data to Display Thyroid Panel: No Data to Display Infectious Disease: No Data to Display Blood Cultures: No Data to Display Toxicology Panel: No Data to Display Panel: No Data to Display Anesthesia Assessment and Plan Anesthesia History Personal History: No History of Anesthesia Complications (Had anesthesia as achild doesnt know how it effects her) Family History: No Family History of Anesthesia Complications Exercise Tolerance Exercise Tolerance: Metabolic Equivalents>4 Pertinent Negatives Pertinent Negatives: No Symptoms of GERD and No History of CVA/TIA Cardiac & Pulmonary Exam Cardiac Exam: Normal S1/S2 Heart Sounds Pulmonary Exam: Clear Bilateral Breath Sounds Implantable Cardiac Device Does patient have a Pacemaker or an ICD?: No Airway Exam Known Difficult Airway: No Mallampati Class: 2 Mouth Opening: Normal (> 3cm) Thyromental Distance: Greater than 3 cm Neck Range of Motion: Full ROM Neck Circumference: Normal Teeth Condition: Normal Dentition ASA Classification ASA Score: ASA 2 Emergency Case?: No NPO Status NPO Status: NPO Clears >2 hours, Solids >8 hours Status Status: Negative HCG Anesthesia Plan Resuscitation Status: Full Code Anesthesia Technique: General Anesthesia Airway Planned: Natural Airway Monitors Used: Standard Monitors
[2022-05-11 07:46] VITALS: BP 112/70; PULSE 88; RESP 20; TEMP 36.3; O2SAT 97
[2022-05-11] MEDS: Lactated Ringers 1,000 ML 80 ML IV (08:00)
[2022-05-11 09:07] VITALS: BMI 35.1
[2022-05-11 09:26] VITALS: BP 93/61; PULSE 82; RESP 18; TEMP 36.7; O2SAT 93
[2022-05-11 10:05] VITALS: BP 97/50; PULSE 75; RESP 18; TEMP 36.4; O2SAT 99
--- NOTE | 2022-05-11 10:21 | W.ANESPOSTOP ---
Postoperative Evaluation Date, Time and Location Date Performed: 05/11/22 Time Performed: 10:21 Patient Location: Day Surgery Unit Vital Signs Most Recent Imported Vital Signs: Most Recent Vital Signs Temp Pulse Resp BP Pulse Ox 36.4 C L 75 18 97/50 L 99 05/11/22 10:05 05/11/22 10:05 05/11/22 10:05 05/11/22 10:05 05/11/22 10:05 Pain Score Most Recent Pain Score: Most Recent Pain Score Pain Level 0 05/11/22 10:05 Assessment Mental Status: Awake (Alert & Oriented to Patient Baseline) Airway and Respiratory Function: Patent airway with normal (patient baseline) respiratory exam Cardiovascular Function: Hemodynamically Stable Hydration Status: Adequately Hydrated Nausea & Vomiting: No Nausea or Vomiting Pain: Pt. Denies Any Pain Peripheral Nerve Block: Patient did not receive a nerve block
== END 2022-05-11 10:42 | disposition home or self-care (01) ==
PROVIDERS: PCP Nurse Practitioner Family; Visit Provider Surgery
PROC: 0DJD8ZZ Inspection of Lower Intestinal Tract, Via Natural or Artificial Opening Endoscopic (ICD-10-PCS; CPT 45378; principal; 2022-05-11 08:30)
DX: Z12.11 Encounter for screening for malignant neoplasm of colon (principal); K57.30 Diverticulosis of large intestine without perforation or abscess without bleeding
CPT/HCPCS: 45378

== ENCOUNTER 2022-12-26 04:32 | Outpatient (CLI) | payer OTHER, SELFPAY ==
--- NOTE | 2022-12-26 06:45 | DI.MAMMO_ITS ---
Exam(s) MAMMO SCREENING EXAM: MAMMO SCREENING CLINICAL HISTORY: screening,z12.39. TECHNIQUE: Bilateral full field digital CC and MLO mammographic images were obtained with 3D tomosyn thesis and utilizing computer aided detection (CAD). COMPARISON: Prior mammograms were reviewed. FINDINGS: Fibroglandular tissue pattern is again noted be moderately dense. In the left breast on the 3D MLO imaging there is an asymmetric density located 7 cm in from the nipp le measuring approximately 1.5 by 1.4 cm, possibly representing an nodule. In the opposite-right breast there is a subtle suggestion nodular density above the nipple level jose uring approximately 9 x 7 mm, best seen on MLO 3D imaging. There are no malignant-appearing microcalcification groups in this region or elsewhere in either [address]. There is no significant architectural distortion nor skin thickening-retraction. IMPRESSION: Dense bilateral fibroglandular tissue. Suggestion of bilateral nodules. Spot compression MLO views both breasts recommended as well as bilateral breast ultrasound. BI-RADS Category 0 - Assessment Incomplete: Need additional imaging evaluation Breast Density - Category C - Heterogeneously dense Breast density Category C or D implies that the patient has dense breast tissue. Dense breast tissue can make it harder to find cancer on a mammogram. Dense breast tissue is also associated with an incr eased risk of breast cancer. This information about the result of the mammogram report was provided to the patient to raise their awareness. Use this report when you speak with the patient about their risks for breast cancer, which includes their family history. At that time, you may recommend additional screening tests (Ultrasoun d or MRI) as these tests may add significant information. A negative radiographic report should not delay biopsy if a dominant or clinically suspicious mass is present. Up to ten percent of cancers are not identified on mammography. A negative report may reinforce clinical impression. Adenosis and dense breasts may obscure an underlying neoplasm. False positive reports average 6 to 10%. Patient will receive a letter notifying them of these results.
== END 2022-12-26 04:52 ==
LOC: DI 04:32
PROVIDERS: PCP Nurse Practitioner Family; Visit Provider Nurse Practitioner Family
DX: Z12.31 Encounter for screening mammogram for malignant neoplasm of breast (principal)
CPT/HCPCS: 77063; 77067

== ENCOUNTER 2023-01-02 01:53 | Outpatient (CLI) | payer OTHER, SELFPAY ==
--- NOTE | 2023-01-02 | DI.US_ITS ---
Exam(s) US BREAST LT COMPLETE US BREAST RT COMPLETE MG MAMMO SCREEN CALL BACK BI EXAM: MG MAMMO SCREEN CALL BACK BI AND BILATERAL COMPLETE BREAST ULTRASOUND CLINICAL HISTORY: F/U MAMMO, R92.8, DENSE BREAST TISSUE, SUGGESTION OF BILAT NODULES. TECHNIQUE: BILATERAL spot mammographic images obtained with 3D tomosynthesisand utilizing computer a ided detection (CAD). . Complete BILATERAL breast Ultrasound was also performed, including all 4 quadrants, the retroareolar regions, and both axillary regions COMPARISON: Prior mammograms were reviewed. This additional imaging was performed due to findings described on the recent screening mammogram of 12/26/2022. FINDINGS: DIAGNOSTIC MAMMOGRAM: Additional mammographic views performed todayrender the areas in both breasts less concerning. We proceeded with ultrasound. COMPLETE BILATERAL BREAST ULTRASOUND: Ultrasound performed today reveals no focal findings in the right breast and no adenopathy in the rig ht axilla. Left breast ultrasound reveals 3 benign-appearing findings. At 1 o'clock position there is a 4 x 3 millimeter hemorrhagic microcyst. At the 9 o'clock position there is a 6 x 5 mm simple benign microcyst. Also at the 9 o'clock position is a 2nd finding which has the appearance of a 4 x [address] Most importantly, there are no solid lesions evident. Scanning of the left axilla reveals no significant adenopathy. IMPRESSION: 1. No significant findings in the right breast. 2. Three benign-appearing findings in the left breast as described above seen on ultrasound exam, hi dden subjacent to her dense fibroglandular tissue on 3D mammography. Appropriate follow-up as discussed by myself with the patient today is repeat ultrasound examination of the breasts at the time of her next yearly mammogram, with earlier imaging if a self detected greg[address] change is noted. The patient was informed of these findings and recommendations by myself prior to leaving the departm ent today. BI-RADS Category 2 - Benign Findings Breast Density - Category C - Heterogeneously dense Breast density Category C or D implies that the patient has dense breast tissue. Dense breast tissue can make it harder to find cancer on a mammogram. Dense breast tissue is also associated with an incr eased risk of breast cancer. This information about the result of the mammogram report was provided to the patient to raise their awareness. Use this report when you speak with the patient about their risks for breast cancer, which includes their family history. At that time, you may recommend additional screening tests (Ultrasoun d or MRI) as these tests may add significant information. A negative radiographic report should not delay biopsy if a dominant or clinically suspicious mass is present. Up to ten percent of cancers are not identified on mammography. A negative report may reinforce clinical impression. Adenosis and dense breasts may obscure an underlying neoplasm. False positive reports average 6 to 10%. Patient will receive a letter notifying them of these results.
== END 2023-01-02 02:13 ==
LOC: DI 01:53
PROVIDERS: PCP Nurse Practitioner Family; Visit Provider Nurse Practitioner Family
DX: R92.8 Other abnormal and inconclusive findings on diagnostic imaging of breast (principal)
CPT/HCPCS: 76642; 77063; 77067

== ENCOUNTER 2023-02-09 02:55 | Outpatient (CLI) | payer OTHER, SELFPAY ==
[2023-02-09 07:51] LABS: Anion Gap 7.7 mmol/L (3-11); BUN 19 mg/dL (7-18); CO2 29.3 mmol/L (21.0-32.0); CREATININE 0.9 mg/dL (0.55-1.02); Calcium 8.9 mg/dL (8.5-10.1); Chloride 108 mmol/L (98-107); Estimated GFR 77.88 (mL/min/1.73m2); Glucose 112 mg/dL (74-106); Magnesium 1.9 mg/dL (1.8-2.4); Potassium 4.5 mmol/L (3.5-5.1); Sodium 145 mmol/L (136-145)
== END 2023-02-09 02:56 | disposition home or self-care (01) ==
LOC: LBO 02:56
PROVIDERS: PCP Nurse Practitioner Family; Visit Provider Nurse Practitioner Family
DX: I47.1 Supraventricular tachycardia (principal)
CPT/HCPCS: 36415; 80048; 83735

== ENCOUNTER 2023-08-13 12:52 | Outpatient (REF) | payer OTHER, SELFPAY ==
--- NOTE | 2023-08-13 11:30 | PAPFT_PTH ---
PATIENT: Laureen Anne LOC: [facility] U#:[id number] AGE/SX: 53/F ROOM: RE08/13/[address]: Kika Dawknis CNM : 1970 BED: DIS: 08/13/2023 SPEC #: [id number] RECD: 08/13/23 13:39 STATUS: SHYAM RELenora #: [id number] JOSE SUBM DR: Kika Dawkins DEPT: [facility] Cytology RECD BY: Luisa Correia ENTERED: 08/13/23 13:39 SP TYPE: PAPFT OTHR DR: Lupe Crisostomo, DATA CODER OPERATOR Tissues: 1 - CX/ENDOCX FOR PAP SMEARS Procedures: PAP THIN PREP/UVM Screening HPV DNA PROBE Comments: [id number]
== END 2023-08-13 12:53 | disposition home or self-care (01) ==
LOC: LBN 12:52
PROVIDERS: PCP Nurse Practitioner Family; Visit Provider Advanced Practice Midwife
DX: Z12.4 Encounter for screening for malignant neoplasm of cervix (principal)
CPT/HCPCS: 88142; 87624

== ENCOUNTER 2024-01-09 05:06 | Outpatient (CLI) | payer OTHER, SELFPAY ==
[2024-01-09 07:28] LABS: Absolute Basophil Count 0.04 10^3/uL (0.0-0.2); Absolute Eosinophil Count 0.09 10^3/uL (0.0-0.7); Absolute Lymphocyte Count 3.07 10^3/uL (1.2-3.4); Absolute Monocyte Count 0.62 10^3/uL (0.1-0.8); Basophils % 0.4 %; Eosinophils % 0.9 %; HCT 39.5 % (36.0-46.0); HGB 12.8 g/dL (11.2-15.7); MCH 29.8 pg (27.0-33.0); MCHC 32.4 % (32.0-36.0); MCV 92 fL (80-95); MPV 8.5 fL (8.0-11.0); Monocytes % 6.1 %; Neutrophils % 61.6 %; Platelet Count 350 10^3/uL (130-400); RDW 12.4 % (11.7-14.6); RDW-SD 42.1 fL; WBC 10.22 10^3/uL (4.4-10.8)
[2024-01-09 07:52] LABS: ALT 42 U/L (14-59); AST 18 U/L (15-37); Albumin 3.7 g/dL (3.4-5.0); Alkaline Phosphatase 89 U/L (46-116); Anion Gap 7.7 mmol/L (3-11); BUN 19 mg/dL (7-18); Bilirubin, Total 0.4 mg/dL (0.2-1.0); CO2 27.3 mmol/L (21.0-32.0); Calcium 9.1 mg/dL (8.5-10.1); Calculated LDL 105 mg/dL (<100); Chloride 107 mmol/L (98-107); Cholesterol 164 mg/dL (<200); Estimated GFR 68.21 (mL/min/1.73m2); Glucose 105 mg/dL (74-106); HDL Cholesterol 32 mg/dL (40-60); Sodium 142 mmol/L (136-145); Total Protein 7.6 g/dL (6.4-8.2); Triglyceride 137 mg/dL (<150)
[2024-01-10 10:35] LABS: Hepatitis C Ab w Rflx HCV PCR Negative (Negative)
[2024-01-10 11:55] LABS: IgA 226 mg/dL (85-499); Interpretation (See Note); Tissue Transglutaminase IgA <4.0 CU (<20.0)
== END 2024-01-09 05:07 | disposition home or self-care (01) ==
LOC: LBO 05:06
PROVIDERS: PCP Nurse Practitioner Family; Visit Provider Nurse Practitioner Family
DX: Z00.00 Encounter for general adult medical examination without abnormal findings (principal); K58.9 Irritable bowel syndrome, unspecified
CPT/HCPCS: 36415; 80053; 80061; 82784; 83516; 86803; 83036; 85025

== ENCOUNTER → 2024-01-10 04:42 | Outpatient (CLI) | payer OTHER, SELFPAY ==
--- NOTE | 2024-01-10 08:13 | DI.MAMMO_ITS ---
Exam(s) MAMMO SCREENING EXAM: MAMMO SCREENING CLINICAL HISTORY: screening,Z12.39. TECHNIQUE: Bilateral full field digital CC and MLO mammographic images were obtained with 3D tomosyn thesis and utilizing computer aided detection (CAD). COMPARISON: Prior mammograms were reviewed. FINDINGS: Fibroglandular tissue pattern is again noted to be moderately dense, this somewhat decreasing the sen sitivity of the mammogram for finding hidden underlying lesions. No new obvious right breast findings. In the left breast on 3D cc imaging there is a small round noncalcified nodule located 7 cm in from t he nipple measuring 5 x 5 mm. More evident than on prior mammogram. Few other benign-appearing nodu lar densities are also not noted. There are benign-appearing microcalcifications in both breasts. No new malignant-appearing microcalc ification groups. There is no significant architectural distortion nor skin thickening-retraction. IMPRESSION: Dense breast tissue. Left breast nodule. Spot compression CC view of the left breast and breast ult rasound recommended. BI-RADS Category 0 - Assessment Incomplete: Need additional imaging evaluation Breast Density - Category C - Heterogeneously dense Breast density Category C or D implies that the patient has dense breast tissue. Dense breast tissue can make it harder to find cancer on a mammogram. Dense breast tissue is also associated with an incr eased risk of breast cancer. This information about the result of the mammogram report was provided to the patient to raise their awareness. Use this report when you speak with the patient about their risks for breast cancer, which includes their family history. At that time, you may recommend additional screening tests (Ultrasoun d or MRI) as these tests may add significant information. A negative radiographic report should not delay biopsy if a dominant or clinically suspicious mass is present. Up to ten percent of cancers are not identified on mammography. A negative report may reinforce clinical impression. Adenosis and dense breasts may obscure an underlying neoplasm. False positive reports average 6 to 10%. Patient will receive a letter notifying them of these results.
== END ==
PROVIDERS: PCP Nurse Practitioner Family; Visit Provider Nurse Practitioner Family
DX: Z12.31 Encounter for screening mammogram for malignant neoplasm of breast (principal); R92.333 Mammographic heterogeneous density, bilateral breasts; N63.20 Unspecified lump in the left breast, unspecified quadrant
CPT/HCPCS: 77063; 77067

== ENCOUNTER → 2024-01-16 04:47 | Outpatient (CLI) | payer OTHER, SELFPAY ==
--- NOTE | 2024-01-16 | DI.MAMMO_ITS ---
Exam(s) MG MAMMO SCREEN CALL BACK UNI US BREAST LT COMPLETE EXAM: MG MAMMO SCREEN CALL BACK UNI-LEFT AND COMPLETE LEFT BREAST ULTRASOUND CLINICAL HISTORY: R92.8 Abn mammo, Dense breast tissue, LT breast nodule. TECHNIQUE: Unilateral LEFT BREAST spot mammographic images obtained with 3D tomosynthesisand [employer] computer aided detection (CAD). . Complete LEFT breast Ultrasound was also performed, including all 4 quadrants, the retroareolar regio n, and the ipsilateral axilla. COMPARISON: Prior mammograms were reviewed. This additional imaging was performed due to findings described on the recent screening mammogram of 01/10/2024. FINDINGS: DIAGNOSTIC MAMMOGRAM: Additional 3D mammographic spot views performed todayare somewhat equivocal. We proceeded with ultrasound... COMPLETE LEFT BREAST ULTRASOUND: Ultrasound performed today reveals no focal findings to correspond to the finding described on the ma mmogram (which was less evident on spot compression views today).. However, at 9 o'clock position th ere is a 4 millimeter benign microcyst noted. In addition, at the 11 o'clock position there is a E 9 by 3 millimeter wider than taller finding which has appearance of a probable hemorrhagic microcyst; less likely a fibroadenoma. It exhibits increased through transmission. There are no other focal ultrasound findings in all 4 quadrants. Scanning of the ipsilateral axilla reveals no significant adenopathy. IMPRESSION: 1. There are no findings on ultrasound to correspond to the original finding on the recent screening mammogram of 01/10/2024. 2. However, there are 2 findings incidentally seen in the left breast seen on today's ultrasound exa mination, 1 of which requires follow-up ULTRASOUND in 6 months. It is hidden subjacent to her fibrog landular tissue on mammography The patient was informed of these findings and recommendations by myself prior to leaving the departm ent today. BI-RADS Category 3 - 6 month - Probably Benign Finding: Recommend follow-up LEFT BREAST ULTRASOUND in 6 months Breast Density - Category C - Heterogeneously dense Breast density Category C or D implies that the patient has dense breast tissue. Dense breast tissue can make it harder to find cancer on a mammogram. Dense breast tissue is also associated with an incr eased risk of breast cancer. This information about the result of the mammogram report was provided to the patient to raise their awareness. Use this report when you speak with the patient about their risks for breast cancer, which includes their family history. At that time, you may recommend additional screening tests (Ultrasoun d or MRI) as these tests may add significant information. A negative radiographic report should not delay biopsy if a dominant or clinically suspicious mass is present. Up to ten percent of cancers are not identified on mammography. A negative report may reinforce clinical impression. Adenosis and dense breasts may obscure an underlying neoplasm. False positive reports average 6 to 10%. Patient will receive a letter notifying them of these results.
== END ==
PROVIDERS: PCP Nurse Practitioner Family; Visit Provider Nurse Practitioner Family
DX: R92.8 Other abnormal and inconclusive findings on diagnostic imaging of breast
CPT/HCPCS: 76642; 77063; 77067

== ENCOUNTER 2024-10-05 13:57 | Emergency (ER) | payer OTHER, SELFPAY ==
[2024-10-05 13:58] VITALS: BP 146/79; PULSE 71; RESP 16; TEMP 36.7; O2SAT 98
--- NOTE | 2024-10-05 14:23 | ED.GENADUL_ITS ---
Discharge Plan Disposition Patient Disposition: Home Condition: Good Discharge Details Clinical Impression: Acute ear pain, Fluid level behind tympanic membrane Primary Care Provider: Lupe Crsiostomo ED Provider: Gerri Nava Home Meds and New Rx's Prescriptions: Continued epinephrine 0.3 mg/0.3 mL auto-injector 0.3 ml IM Q5-15M PRN (Reason: hypersensitivity reaction) Qty: 2 4RF Mirena 21 mcg/24 hours (8 yrs) 52 mg intrauterine device 1 device Intrauterine ONCE Qty: 1 0RF albuterol sulfate [Ventolin HFA] 90 mcg/actuation HFA aerosol inhaler 1 - 2 puff IH Q4H PRN (Reason: shortness of breath or wheezing) Qty: 3 4RF acyclovir 800 mg tablet 800 mg PO BID PRN (Reason: rash) Qty: 60 1RF Rx Instructions: Take 1 tablet twice a day for 5 days at first onset of symptoms as needed ibuprofen 200 mg Capsule 400 mg PO Q6H PRN Discharge Instructions Instructions: Fluid in the Ear ED Additional Instructions: Continue taking ibuprofen at home. You can take up to 600mg every 6 hours for the next two days. Take Benadryl at home; this may help dry up the fluid behind your eardrum. You can take 25-50mg every 4-6 hours. If your symptoms persist despite home treatment, call your primary care doctor to schedule an appointment to followup on your visit here. Return to the emergency department for new or worsening symptoms including fever, new/different/worse pain, or if you have any other concerns. Referrals: Lupe Crisostomo NP [Primary Care Provider] - [facility] General Mode of arrival: ambulatory . Date/Time Provider Initiated Documentation: 10/05/24 14:12 . Limitations to Documentation: no limitations . Information obtained by: patient . HPI Narrative: 54yo F presenting with left ear pain onset yesterday. Pain is dull pressure especially if she lowers her head, also sometimes severe sharp stabbing pain. No discharge, no hearing changes. Has chronic sinus problems but not worse recently. No cough, rhinnorhea, new nasal congestion, or difficulty breathing. Mild sore throat (seems left sided) and worsened ear pain with swallowing. No difficulty swallowing. No fevers. Otherwise in her usual state of health. Related Data Home Medications ?Medication ?Instructions ?Recorded ?Confirmed ibuprofen 200 mg capsule 400 mg PO Q6H PRN 05/11/22 10/05/24 levonorgestrel 21 mcg/24 hr (up to 1 device intrauterine ONCE #1 ea 09/05/23 10/05/24 8 years) 52 mg intrauterine device (Mirena) epinephrine 0.3 mg/0.3 mL 0.3 ml IM Q5-15M PRN 12/27/23 10/05/24 injection, auto-injector hypersensitivity reaction #2 ea acyclovir 800 mg tablet 800 mg PO BID PRN rash #60 tabs 07/21/24 10/05/24 albuterol sulfate 90 mcg/actuation 1 - 2 puff inhalation Q4H PRN 07/21/24 10/05/24 aerosol inhaler (Ventolin HFA) shortness of breath or wheezing #3 ea Previous Rx's ?Medication ?Instructions ?Recorded levonorgestrel 21 mcg/24 hr (up to 1 device intrauterine ONCE #1 ea 09/05/23 8 years) 52 mg intrauterine device (Mirena) epinephrine 0.3 mg/0.3 mL 0.3 ml IM Q5-15M PRN 12/27/23 injection, auto-injector hypersensitivity reaction #2 ea acyclovir 800 mg tablet 800 mg PO BID PRN rash #60 tabs 07/21/24 albuterol sulfate 90 mcg/actuation 1 - 2 puff inhalation Q4H PRN 07/21/24 aerosol inhaler (Ventolin HFA) shortness of breath or wheezing #3 ea Allergies Allergy/AdvReac Type Severity Reaction Status Date / Time venom-honey bee Allergy Intermediate Local Verified 10/05/24 14:03 Swelling General Stated Complaint: EarProblem OLGA LIDIA: 4 Review of Systems Narrative: see HPI Exam Narrative Exam Narrative: General: Alert, well appearing, well nourished, in no acute distress. Head: Normocephalic, atraumatic Neck: Trachea midline, ?Neck supple. ENT: ?MMM.? No oropharygeal lesions or exudate. Right TM normal. Left ear with serous otits, TM bulging, no erythema. Normal external auditory canals. Cardiac: ?No cyanosis. Resp: No respiratory distress. . Abd: ?Non-distended, Extremities: ?No deformities.? No peripheral edema. Neurologic: GCS 15. ? Moves all extremities freely against gravity Course Vital Signs Vital signs: Vital Signs Temperature 36.7 C 10/05/24 13:58 Pulse 71 10/05/24 13:58 Respiratory Rate 16 10/05/24 13:58 Blood Pressure 146/79 H 10/05/24 13:58 Pulse Oximetry 98 10/05/24 13:58 Temperature 36.7 C 10/05/24 13:58 Temperature Source Temporal Artery Scan 10/05/24 13:58 Pulse 71 10/05/24 13:58 Respiratory Rate 16 10/05/24 13:58 Blood Pressure 146/79 H 10/05/24 13:58 Blood Pressure Position Supine 10/05/24 13:58 Pulse Oximetry 98 10/05/24 13:58 Oxygen Delivery Method Room Air 10/05/24 13:58 Oxygen Flow Rate 0 10/05/24 13:58 Pain Level 6 10/05/24 13:58 Medical Decision Making 54yo F presenting with left ear pain onset yesterday. Vital signs reassuring on arrival. Serous otitis media on the left on exam. No ottis externa, no indication of infection. Not septic. No indication for bloodwork or CT imaging. Would not do antibiotics. Advised continued NSAIDs as well as antihistamines at home. Discharged home; discharge instructions and return precautions were reviewed with patient who verbalized understanding. All questions were answered and she is in agreement with the plan. Quality:SDOH Health Related Social Needs: No Data to Display PFSH All Active Problems (Updated 10/05/24 @ 14:23 by Gerri Nava MD) Fluid level behind tympanic membrane (Acute) Acute ear pain (Acute) Hyperlipidemia (Chronic) Prediabetes (Chronic) IBS (irritable bowel syndrome) (Chronic) GERD (gastroesophageal reflux disease) (Chronic) IUD surveillance (Chronic) Mirena IUD inserted 08/2023. Sigmoid diverticulosis (Chronic) Obesity (BMI 30-39.9) (Chronic) Genital herpes (Acute) Medical History (Updated 10/05/24 @ 14:23 by Gerri Nava MD) Nonsustained paroxysmal supraventricular tachycardia BPPV (benign paroxysmal positional vertigo) Asthma Anxiety and depression Surgical History No significant past surgical history Family History Mother TB (tuberculosis) Essential hypertension Non-Hodgkin lymphoma Stroke Prediabetes Father Essential hypertension Sister No problems noted. Sister No problems noted. Sister No problems noted. Brother No problems noted. Daughter No problems noted. Daughter No problems noted. Daughter No problems noted. Son No problems noted. Maternal Grandfather Glaucoma Parkinson disease Maternal Grandmother Skin cancer Non-Hodgkin lymphoma Heart disease Paternal Grandfather , of [place] in his 50s/60s Heart disease Myocardial infarction Paternal Grandmother Colon cancer In her early 80s Macular degeneration Heart disease Social History Smoking/Tobacco Use Status: Former Tobacco Use tobacco type: cigarettes Quit Date: 08/27/98 Tobacco: How many years used: 10 Second Hand Exposure: Yes Smoking risk assessment performed?: Yes Alcohol Intake: current Alcohol Intake frequency: a few times a month Alcohol type: beer, wine and hard liquor Drug use: Never Substance use type: does not use Details: alcohol: t-6 Caregiver/Support person: No Household members: spouse and children Housing: house Communication Needs: None Do you need help understanding health information?: Never Pets and animals: Yes Pets and animals: cat(s), dog(s), bird(s) and other Details: Bee hives, pigeons Sexually active: Yes Do you think of yourself as: straight/heterosexual Current gender identity: female What is your relationship status?: How often do you talk on the phone with friends or family?: three or more times per week How often do you get together with friends or relatives?: twice per week How often do you attend rastafari or adventist services?: decline to answer Do you belong to any clubs or organized social groups?: no Panel score (0-1 are the most socially isolated patients): 2 What type of physical activity do you participate in: walking Duration: 15-30 minutes/day Frequency: 1-2 times per week Carito/Islam: Anglican Special carito needs: No Seatbelt use: always Helmet use: Yes Helmet use: always Drive intox or ride w/intox dedicated regional driver: No Do you feel safe at home: Yes Do you feel safe in your relationship?: Yes Female Reproductive History Menstrual control method: progestin IUCD (Mirena IUD 05/22/17) History History 4 Para 4 Hx # Term Pregnancies Multiple births Hx # Pregnancies Ectopic pregnancies AB induced Hx Number of Living Children 4 AB spontaneous
== END 2024-10-05 14:35 | disposition home or self-care (01) ==
PROVIDERS: Emergency Provider Student in an Organized Health Care Education/Training Program; PCP Nurse Practitioner Family
DX: H65.02 Acute serous otitis media, left ear (principal); Z87.891 Personal history of nicotine dependence
CPT/HCPCS: 99283

== ENCOUNTER 2024-12-31 00:38 | Outpatient (CLI) | payer OTHER, SELFPAY ==
--- NOTE | 2024-12-31 06:30 | DI.MAMMO_ITS ---
Exam(s) US BREAST LT COMPLETE US BREAST RT COMPLETE MG MAMMO DIAGNOSTIC BI EXAM: MG MAMMO DIAGNOSTIC BI CLINICAL HISTORY: 6 month f/u,f/u abnl mammo,r92.8,z09,dense fibroglandular tissue,lt. TECHNIQUE: Full field digital Mammography views of the bothbreasts with Tomosynthesis followed by bi lateral breast ultrasound. Computer-aided detection was employed. COMPARISON: 2015 through 2023 Bilateral breast ultrasound 2022 left breast ultrasound 2023 FINDINGS: RIGHT BREAST: Mammography/Tomosynthesis: Masses/Architectural Distortion: None seen. Microcalcifictions: No suspicious pleomorphic-type are seen. Skin Thickening/Nipple Retraction: None. Right breast US: Echotexture: Normal appearance of the glandular tissue. Shadowing: No suspicious foci. Cyst: 3 millimeter cyst 1 cm from the nipple 7 o'clock position Solid lesions: None seen. Ductal dilation: None. LEFT BREAST: Mammography/Tomosynthesis: Masses/Architectural Distortion: None seen. Microcalcifictions: No suspicious pleomorphic-type are seen. Skin Thickening/Nipple Retraction: None. Left breast ultrasound: Echotexture: Normal appearance of the glandular tissue. Shadowing: No suspicious foci. Cyst: 6 millimeter cyst 1 o'clock position 3 cm from the nipple. 8 x 4 x 7 millimeter cyst 9 o'clock position 2 cm from the nipple. 5 millimeter cyst 8 o'clock position 2 cm from the nipple. 4 millim eters cyst 7 o'clock position 3 cm from the nipple. 5 millimeters cyst 6 o'clock position 2 cm from the nipple. Solid lesions: None seen. Ductal dilation: None. IMPRESSION: 1. Right breast: No evidence of malignancy is noted. 2. Left breast: No evidence of malignancy is noted. Multiple cysts. 3. Unless there is more urgent need, follow-up screening mammography is recommended, as per [employer] guidelines. 4. The findings were discussed with the patient on the date of the examination. BI-RADS Category 2 - Benign Findings Breast Density - Category C - The breast are heterogeneously dense, which may obscure small masses. Breast density Category C or D implies that the patient has dense breast tissue. Dense breast tissue can make it harder to find cancer on a mammogram. Dense breast tissue is also associated with an incr eased risk of breast cancer. This information about the result of the mammogram report was provided to the patient to raise their awareness. Use this report when you speak with the patient about their risks for breast cancer, which includes their family history. At that time, you may recommend additional screening tests (Ultrasoun d or MRI) as these tests may add significant information. A negative radiographic report should not delay biopsy if a dominant or clinically suspicious mass is present. Up to ten percent of cancers are not identified on mammography. A negative report may reinforce clinical impression. Adenosis and dense breasts may obscure an underlying neoplasm. False positive reports average 6 to 10%. Patient will receive a letter notifying them of these results.
== END 2024-12-31 00:58 ==
PROVIDERS: PCP Nurse Practitioner Family; Visit Provider Nurse Practitioner Family
DX: Z09 Encounter for follow-up examination after completed treatment for conditions other than malignant neoplasm (principal); R92.8 Other abnormal and inconclusive findings on diagnostic imaging of breast; N62 Hypertrophy of breast
CPT/HCPCS: 76642; 77062; 77066; G0279